=== PATIENT | male | born 1950 | race Caucasian/White ===

== ENCOUNTER 2016-08-11 22:11 | Emergency (ER) | payer BC ==
[~2016-08-11] VITALS: Ht 170.2 cm; Wt 78.1 kg
[~2016-08-11 22:11] MED LIST: LISI20TA3 PO; PRLSR20 PO; PROP40TA5 PO; TIZA4CAP PO; TRAM-10 PO
[2016-08-11 22:15] VITALS: Ht 170.2 cm; Wt 78.1 kg
[2016-08-11 22:57] LABS: BASO % 0.1 %; BASO ABS # 0.01 K/uL (0-0.2); COMPLETE YES; EOS % 0.7 %; HEMATOCRIT 44.3 % (42-52); IG% 0.2 %; LYMPH % 4.3 %; LYMPH ABS # 0.53 K/uL (1.2-3.4); MEAN CELL VOLUME 85.5 fL (80-100); MEAN CORPUSCULAR HEMOGLOBIN 31.1 pg (25-34); MEAN CORPUSCULAR HGB CONC 36.3 g/dl (32-36); MEAN PLATELET VOLUME 10.8 fL (7.4-10.4); MONO % 3.2 %; NEUT % 91.5 %; PLATELET COUNT 165 K/uL (130-400); RED BLOOD COUNT 5.18 M/uL (4.7-6.1); WHITE BLOOD COUNT 12.37 K/uL (4.8-10.8)
[2016-08-11] MEDS ORDERED: IBUPROFEN 600 MG TAB PO STA (23:11)
[2016-08-11] MEDS ORDERED: SODIUM CHLORIDE 0.9% 1000ML 1,000 ML IV SCH (23:15)
[2016-08-11 23:36] LABS: BLOOD UREA NITROGEN 21 mg/dl (7-18); BUN/CREATININE RATIO 19.1 (10-20); CALCIUM 9.4 mg/dl (8.5-10.1); CARBON DIOXIDE 20 mmol/L (21-32); CHLORIDE 104 mmol/L (98-107); GLUCOSE 162 mg/dl (70-99); POTASSIUM 3.6 mmol/L (3.5-5.1); SODIUM 137 mmol/L (136-145)
[2016-08-11 23:41] LABS: ALKALINE PHOSPHATASE 80 U/L (45-117); ALT/SGPT 23 U/L (12-78); AST/SGOT 16 U/L (15-37)
--- NOTE | 2016-08-12 00:37 | EMERGENCY ROOM VISIT NOTE ---
History First contact with patient: 22:33 Chief Complaint: RESPIRATORY PROBLEMS Stated Complaint: COLD BRONCHITIS, BREATHING ISSUES, FEVER Nursing Triage Summary: Pt reports cough and cold symptoms for 3 days. Lives with daughter and two grandchildren. All have had cold. Pt concerned about pneumonia. History of Present Illness The patient is a 66 year old male who presents to the Emergency Room with complaints of coughing and fever. Patient has had coughing x 3 days, productive of yellow sputum, without blood. Patient has been taking NyQuil and Pseudafed, which helps to dry up cough but makes him feel sedated. He has also used a steamer and hot drinks. Also took Percocet (leftover from previous surgery, which relieves pain from neck jolt from coughing, which is extremely painful due to cervical stenosis). Cough associated with fever, which started a few days ago, worse today and associated with chills and clamminess. Temperature measured 100.4 at home Cough also associated with chest pain, felt bilaterally in front and back pain, worse when coughing. Patient unsure of radiation, particularly given roasterman shoulder pain bilaterally. He is also experiencing dyspnea at rest, but denies nausea. He has a loss of appetite, but is tolerating food without vomiting or abdominal pain. No constipation or diarrhea. No UTI symptoms. No other URI symptoms (sore throat , rhinorrhea, eustachian dysfunction) Sick contacts: two grandchildren currently sick No history of asthma Ex smoker of 50 years, only social smoker during college No alcohol usage x 15 years, pancreatitis resolved. Cardiac hx: tachycardia of unknown cause Fam hx: dad - stroke and [place], brother - DM Review of Systems See HPI for pertinent positives and negatives. A total of ten systems were reviewed and were otherwise negative. Past Medical/Surgical History Medical Problems: (1) Cervical stenosis of spine (2) Gastro-Esophageal Reflux Disease Without Esophagitis (3) Hyperlipidemia (4) Hypertension (5) Shoulder pain Surgical Problems: (1) History of arthroscopy of shoulder (2) Total knee replacement status Social History Smoking Status: Former Smoker Marital Status: single Housing Status: lives with family Occupation Status: retired Current/Historical Medications Scheduled Lisinopril (Prinivil), 20 MG PO BID Propranolol Hcl (Propranolol Hcl), 40 MG PO BID Tizanidine (Zanaflex), 4 MG PO HS Scheduled PRN Omeprazole (Prilosec), 20 MG PO DAILY PRN for Heartburn Allergies Coded Allergies: Morphine (Verified Allergy, Severe, THROAT CLOSES, 05/02/16) Physical Exam Vital Signs Date Time Temp Pulse Resp B/P Pulse Ox O2 Delivery O2 Flow Rate FiO2 08/12/16 00:51 36.9 92 20 118/72 98 08/11/16 23:25 95 20 122/78 98 Room Air 08/11/16 22:25 98 Room Air 08/11/16 22:15 38.1 98 20 164/90 94 Room Air Physical Exam GENERAL: alert, lying in bed, no acute distress, non-toxic HEAD: Normocephalic, atraumatic. No sinus tenderness. EYES: PERRL, EOMI, normal conjunctiva EARS: Tympanic membranes within normal limits, no indication of effusion. OROPHARYNX: no exudate, no erythema, lips, buccal mucosa, and tongue normal and mucous membranes are dry NECK: supple, no nuchal rigidity, no adenopathy, non-tender LUNGS: Diffuse crepitations on auscultation. Normal chest wall mechanics, good air entry. No crackles, or wheezes HEART: no murmurs, S1 normal and S2 normal CHEST: Reproducible tenderness on costochondral joints ABDOMEN: abdomen soft, non-tender, normo-active bowel sounds, no masses, no rebound or guarding. BACK: Back is symmetrical on inspection, no deformities, no midline tenderness, no CVA tenderness. SKIN: Warm, pink, dry. No erythema, rashes, or bruising. EXTREMITIES: Grossly normal. Moving all 4 limbs, strength 5/5. No pitting edema. Calves non tender. NEURO: Alert, Ox3. No focal deficits. Normal sensorium, cranial nerves II-XII grossly intact, normal speech. PSYCH: Mood and affect appropriate. Medical Decision & Procedures Laboratory Results 08/11/16 22:30 Red Blood Count 5.18, Mean Corpuscular Volume 85.5, Mean Corpuscular Hemoglobin 31.1, Mean Corpuscular Hemoglobin Concent 36.3, Mean Platelet Volume 10.8, Neutrophils (%) (Auto) 91.5, Lymphocytes (%) (Auto) 4.3, Monocytes (%) (Auto) 3.2, Eosinophils (%) (Auto) 0.7, Basophils (%) (Auto) 0.1, Neutrophils # (Auto) 11.32, Lymphocytes # (Auto) 0.53, Monocytes # (Auto) 0.39, Eosinophils # (Auto) 0.09, Basophils # (Auto) 0.01 08/11/16 22:30 Test 08/11/16 00:45 08/11/16 22:30 08/11/16 22:43 Influenza Type A Antigen Neg for Influ A (NEG) Influenza Type B Antigen Neg for Influ B (NEG) White Blood Count 12.37 K/uL (4.8-10.8) Red Blood Count 5.18 M/uL (4.7-6.1) Hemoglobin 16.1 g/dL (14.0-18.0) Hematocrit 44.3 % (42-52) Mean Corpuscular Volume 85.5 fL (80-100) Mean Corpuscular Hemoglobin 31.1 pg (25-34) Mean Corpuscular Hemoglobin Concent 36.3 g/dl (32-36) Platelet Count 165 K/uL (130-400) Mean Platelet Volume 10.8 fL (7.4-10.4) Neutrophils (%) (Auto) 91.5 % Lymphocytes (%) (Auto) 4.3 % Monocytes (%) (Auto) 3.2 % Eosinophils (%) (Auto) 0.7 % Basophils (%) (Auto) 0.1 % Neutrophils # (Auto) 11.32 K/uL (1.4-6.5) Lymphocytes # (Auto) 0.53 K/uL (1.2-3.4) Monocytes # (Auto) 0.39 K/uL (0.11-0.59) Eosinophils # (Auto) 0.09 K/uL (0-0.5) Basophils # (Auto) 0.01 K/uL (0-0.2) RDW Standard Deviation 43.4 fL (36.4-46.3) RDW Coefficient of Variation 13.9 % (11.5-14.5) Immature Granulocyte % (Auto) 0.2 % Immature Granulocyte # (Auto) 0.03 K/uL (0.00-0.02) Anion Gap 13.0 mmol/L (3-11) Est Creatinine Clear Calc Drug Dose 61.8 ml/min Estimated GFR () 80.6 Estimated GFR (Non- 69.6 BUN/Creatinine Ratio 19.1 (10-20) Calcium Level 9.4 mg/dl (8.5-10.1) Total Bilirubin 0.6 mg/dl (0.2-1) Direct Bilirubin 0.1 mg/dl (0-0.2) Aspartate Amino Transf (AST/SGOT) 16 U/L (15-37) Alanine Aminotransferase (ALT/SGPT) 23 U/L (12-78) Alkaline Phosphatase 80 U/L (45-117) Troponin I < 0.015 ng/ml (0-0.045) Total Protein 7.4 gm/dl (6.4-8.2) Albumin 4.3 gm/dl (3.4-5.0) Bedside Lactic Acid Venous 1.08 mmol/L (0.90-1.70) Medications Administered Medications (Trade) Dose Ordered Sig/Maribell Route Start Time Stop Time Status Last Admin Dose Admin Sodium Chloride (Nss 1000ml) 1,000 ml @ 500 mls/hr Q2H IV 08/11/16 23:15 08/12/16 01:46 DC 08/11/16 23:22 500 MLS/HR Ibuprofen (Motrin Tab) 600 mg NOW STAT PO 08/11/16 23:11 08/11/16 23:13 DC 08/11/16 23:21 600 MG ECG Indication: chest pain Rate (beats per minute): 89 Rhythm: normal sinus Findings: no acute ischemic change, no ectopy Comparison ECG Date: no prior available Medical Decision 66 year old male presented with cough and fever The patient was evaluated in room []. A complete history and physical exam was performed. Differential diagnoses includes but is not limited to pneumonia, bronchitis, COPD/Asthma exacerbation, pneumothorax, pulmonary embolism, congestive heart failure, acute coronary syndrome Patient was given PO Motrin 600mg for fever relief. Additionally, 1L of IV normal saline was given to improve hydration status. EKG showed NSR without acute ischemic changes. Lab work was performed. CBC, BMP, LFT, and lipase were all within normal limits. CXR was read by attending, and no consolidation or fluid was noted Nasopharyngeal swabs performed, but patient agreeable to be discharged prior to results since he is already outside the window for efficacy of Tamiflu Likely diagnosis is upper respiratory viral infection. As such, patient advised for conservative management with Tylenol or Motrin for pain and fever relief and increased oral intake to improve hydration status. In addition, patient advise for early PCP follow up, especially if no improvement in symptoms, or uncontrolled fever. Patient and daughter understand and agreeable with care plan. Patient discharged home well. Impression Primary Impression: URI (upper respiratory infection) Departure Information Dispostion Home / Self-Care Condition GOOD Referrals Imer Maynard MD (PCP) Patient Instructions My [facility] Additional Instructions You were seen in the ER with a history of productive cough associated with chest pain and fever for three days. Labs were done that showed mildly elevated white blood cells, no anemia and normal functioning kidneys and liver. Your EKG and cardiac enzyme were within normal limits. You chest X-ray showed no consolidation or pleural fluid. Swabs were taken for influenza, those results are pending. You will be called if they test positive. As such, conservative managment is recommended. For pain and fever control, you can use the following [id number] medicines: - Regular strength (325mg/tab) Tylenol (acetaminophen) 2 tabs every 4-6 hours as needed. Do not exceed 12 tablets in a 24 hour period. Avoid taking more than 4 grams (4000 mg) of Tylenol per day. This includes any other sources of acetaminophen you may take on a regular basis. - Regular strength (200 mg/tab) Advil (ibuprofen) 1-2 tabs every 4-6 hours as needed. Do not exceed a dose of 3200 mg per day. In addition, adequte hydration is very important. Please ensure increased intake of fluids for hydration maintenance. Other techniques to help you feel better include warm compresses on your chest, and a humidifier if that continues to feel helpful. Finally, please follow up with your PCP next week. If you feel worse, or feel no improvement, a sooner appointment is advisable or you may need to return to the ED. You have been examined and treated today on an emergency basis only. This is not a substitute for, or an effort to provide, complete comprehensive medical care. It is impossible to recognize and treat all injuries or illnesses in a single emergency department visit. It is therefore important that you make a follow up with your physician for close monitoring. Return to the ER immediately for worsening or persistent dizziness, vomiting, headache, uncontrolled fevers, increasing chest pains associated with nausea or sweating, difficulty breathing, black or bloody stools, slurred speech, numbness , weakness, visual changes, worsening of your condition, or as needed. Problem Qualifiers Primary Impression: URI (upper respiratory infection) URI type: unspecified viral URI Qualified Codes: J06.9 - Acute upper respiratory infection, unspecified; B97.89 - Other viral agents as the cause of diseases classified elsewhere
[2016-08-12 00:51] VITALS: BP 118/72; PULSE 92; TEMP 36.9; O2SAT 98
--- NOTE | 2016-08-12 01:37 | EMERGENCY ROOM VISIT NOTE ---
History Report prepared by Adam: Addie Nielson Under the Supervision of: Christina CalhounO. First contact with patient: 22:33 Chief Complaint: RESPIRATORY PROBLEMS Stated Complaint: COLD BRONCHITIS, BREATHING ISSUES, FEVER Nursing Triage Summary: Pt reports cough and cold symptoms for 3 days. Lives with daughter and two grandchildren. All have had cold. Pt concerned about pneumonia. History of Present Illness The patient is a 66 year old male who presents to the Emergency Room with complaints of worsening respiratory problems for the past 3 days. His symptoms started with rhinorrhea, sneezing, coughing, and congestion. He states that these symptoms have worsened and now he is having a hard time breathing. This afternoon he developed chills and a fever. His temperature was 100.4. He took NyQuil for his symptoms. The patient notes chest tightness. He has pain when he coughs and takes a deep breath and states "My lungs hurt today." He rates his pain as a 7/10. He has a history of spinal stenosis and states that coughing exacerbates his neck pain. His children and grandchildren have been sick with similar symptoms. He denies any personal history of asthma or COPD. Pt denies headache, abdominal pain, nausea, vomiting, diarrhea, pain with urination, and melena. He took Percocet LOFTSMAN/WOMAN which helped with his pain. Source of History: patient, family (daughter) Onset: 3 days ago Position: chest (respiratory) Symptom Intensity: 7/10 Quality: other (tightness) Timing: worsening Modifying Factors (Worsening): breathing, other (coughing) Modifying Factors (Relieving): narcotics (Percocet) Associated Symptoms: + SOB, + chest pain, + chills, + fevers, + neck pain, No abdominal pain, No diarrhea, No headache, No melena, No nausea, No urinary symptoms, No vomiting Review of Systems See HPI for pertinent positives & negatives. A total of 10 systems reviewed and were otherwise negative. Past Medical & Surgical Medical Problems: (1) Cervical stenosis of spine (2) Gastro-Esophageal Reflux Disease Without Esophagitis (3) Hyperlipidemia (4) Hypertension (5) Shoulder pain Surgical Problems: (1) History of arthroscopy of shoulder (2) Total knee replacement status Family History Diabetes mellitus FH: heart disease Hypertension Kidney disease Kidney stones Social History Smoking Status: Former Smoker Smokeless Tobacco Use: No Alcohol Use: none Marital Status: single Housing Status: lives with family Occupation Status: retired Current/Historical Medications Scheduled Lisinopril (Prinivil), 20 MG PO BID Propranolol Hcl (Propranolol Hcl), 40 MG PO BID Tizanidine (Zanaflex), 4 MG PO HS Scheduled PRN Omeprazole (Prilosec), 20 MG PO DAILY PRN for Heartburn Allergies Coded Allergies: Morphine (Verified Allergy, Severe, THROAT CLOSES, 05/02/16) Physical Exam Vital Signs Date Time Temp Pulse Resp B/P Pulse Ox O2 Delivery O2 Flow Rate FiO2 08/12/16 00:51 36.9 92 20 118/72 98 08/11/16 23:25 95 20 122/78 98 Room Air 08/11/16 22:25 98 Room Air 08/11/16 22:15 38.1 98 20 164/90 94 Room Air Physical Exam GENERAL: alert, sitting up in bed, well appearing, well nourished, no distress, non-toxic EYE EXAM: normal conjunctiva OROPHARYNX: no exudate, no erythema, lips, buccal mucosa, and tongue normal and mucous membranes are moist NECK: supple, no nuchal rigidity, no adenopathy, non-tender LUNGS: Diffuse wheezing. Normal chest wall mechanics HEART: no murmurs, S1 normal and S2 normal ABDOMEN: abdomen soft, non-tender, normo-active bowel sounds, no masses, no rebound or guarding. BACK: Back is symmetrical on inspection and there is no deformity, no midline tenderness, no CVA tenderness. SKIN: no rashes and no bruising UPPER EXTREMITIES: upper extremities are grossly normal. LOWER EXTREMITIES: No pitting edema. Calves equal bilaterally. NEURO EXAM: Normal sensorium, cranial nerves II-XII grossly intact, normal speech, no gross weakness of arms, no gross weakness of legs. Medical Decision & Procedures ER Provider Diagnostic Interpretation: Two-view chest x-ray as interpreted by myself reveals no focal infiltrate or pneumothorax. Laboratory Results 08/11/16 22:30 Red Blood Count 5.18, Mean Corpuscular Volume 85.5, Mean Corpuscular Hemoglobin 31.1, Mean Corpuscular Hemoglobin Concent 36.3, Mean Platelet Volume 10.8, Neutrophils (%) (Auto) 91.5, Lymphocytes (%) (Auto) 4.3, Monocytes (%) (Auto) 3.2, Eosinophils (%) (Auto) 0.7, Basophils (%) (Auto) 0.1, Neutrophils # (Auto) 11.32, Lymphocytes # (Auto) 0.53, Monocytes # (Auto) 0.39, Eosinophils # (Auto) 0.09, Basophils # (Auto) 0.01 08/11/16 22:30 Test 08/11/16 00:45 08/11/16 22:30 08/11/16 22:43 White Blood Count 12.37 K/uL (4.8-10.8) Red Blood Count 5.18 M/uL (4.7-6.1) Hemoglobin 16.1 g/dL (14.0-18.0) Hematocrit 44.3 % (42-52) Mean Corpuscular Volume 85.5 fL (80-100) Mean Corpuscular Hemoglobin 31.1 pg (25-34) Mean Corpuscular Hemoglobin Concent 36.3 g/dl (32-36) Platelet Count 165 K/uL (130-400) Mean Platelet Volume 10.8 fL (7.4-10.4) Neutrophils (%) (Auto) 91.5 % Lymphocytes (%) (Auto) 4.3 % Monocytes (%) (Auto) 3.2 % Eosinophils (%) (Auto) 0.7 % Basophils (%) (Auto) 0.1 % Neutrophils # (Auto) 11.32 K/uL (1.4-6.5) Lymphocytes # (Auto) 0.53 K/uL (1.2-3.4) Monocytes # (Auto) 0.39 K/uL (0.11-0.59) Eosinophils # (Auto) 0.09 K/uL (0-0.5) Basophils # (Auto) 0.01 K/uL (0-0.2) RDW Standard Deviation 43.4 fL (36.4-46.3) RDW Coefficient of Variation 13.9 % (11.5-14.5) Immature Granulocyte % (Auto) 0.2 % Immature Granulocyte # (Auto) 0.03 K/uL (0.00-0.02) Anion Gap 13.0 mmol/L (3-11) Est Creatinine Clear Calc Drug Dose 61.8 ml/min Estimated GFR () 80.6 Estimated GFR (Non- 69.6 BUN/Creatinine Ratio 19.1 (10-20) Calcium Level 9.4 mg/dl (8.5-10.1) Total Bilirubin 0.6 mg/dl (0.2-1) Direct Bilirubin 0.1 mg/dl (0-0.2) Aspartate Amino Transf (AST/SGOT) 16 U/L (15-37) Alanine Aminotransferase (ALT/SGPT) 23 U/L (12-78) Alkaline Phosphatase 80 U/L (45-117) Troponin I < 0.015 ng/ml (0-0.045) Total Protein 7.4 gm/dl (6.4-8.2) Albumin 4.3 gm/dl (3.4-5.0) Bedside Lactic Acid Venous 1.08 mmol/L (0.90-1.70) Laboratory results per my review. Medications Administered Medications (Trade) Dose Ordered Sig/Maribell Route Start Time Stop Time Status Last Admin Dose Admin Sodium Chloride (Nss 1000ml) 1,000 ml @ 500 mls/hr Q2H IV 08/11/16 23:15 09/10/16 23:14 08/11/16 23:22 500 MLS/HR Ibuprofen (Motrin Tab) 600 mg NOW STAT PO 08/11/16 23:11 08/11/16 23:13 DC 08/11/16 23:21 600 MG ECG Indication: chest pain Rate (beats per minute): 89 Rhythm: normal sinus Findings: no acute ischemic change, no ectopy, other (normal axis) ED Course ED COURSE: Vital signs were reviewed and showed febrile. The patients medical record was reviewed The above diagnostic studies were performed and reviewed. ED treatments and interventions as stated above. 2233: The patient was evaluated in room B9. A complete history and physical examination was performed. 2311: Motrin 600 mg PO 2315: NSS 1000 ml @ 500 mls/hr IV 2359: Upon reevaluation, the patient is feeling better and resting comfortably. I discussed my findings with the patient and he understands and agrees with the treatment plan. Based on the patients age, coexisting illnesses, exam and lab findings the decision to treat as an outpatient was made. The patient remained stable while under my care. The patient appeared well at the time of discharge. Medical Decision Differential diagnoses includes but is not limited to pneumonia, bronchitis, COPD/Asthma exacerbation, pneumothorax, pulmonary embolism, congestive heart failure, acute coronary syndrome. Patient is a 66-year-old male who presents the ER for cough associated with a fever and runny nose. He notes multiple family sick contacts. Labs show no significant leukocytosis or anemia. BMP shows a CO2 of 20. LFTs along with bilirubin and troponin were negative. EKG was nondiagnostic. Based on symptoms I do favor this likely a viral URI. Chest x-ray shows no focal infiltrate. Flu swabs were obtained just prior to discharge. Patient was initially seen by my resident and I independently evaluated patient. Patient was discharged follow-up with his primary care doctor as an outpatient. Vitals are stable. Discussed with Pt concerning signs and symptoms to watch out for. Pt was instructed to follow up with their PCP and discussed with the patient their option to return to the ED at anytime for persistent or worsening symptoms. The appropriate anticipatory guidance and out-patient management, including indications for return to the emergency department, were explained at length to the patient and understood. Impression Primary Impression: URI (upper respiratory infection) Scribe Attestation The scribe's documentation has been prepared under my direction and personally reviewed by me in its entirety. I confirm that the note above accurately reflects all work, treatment, procedures, and medical decision making performed by me. Departure Information Dispostion Home / Self-Care Referrals Imer Maynard MD (PCP) Forms HOME CARE DOCUMENTATION FORM, IMPORTANT VISIT INFORMATION, WORK / SCHOOL INSTRUCTIONS Patient Instructions My [facility] Additional Instructions You were seen in the ER with a history of productive cough associated with chest pain and fever for three days. Labs were done that showed mildly elevated white blood cells, no anemia and normal functioning kidneys and liver. Your EKG and cardiac enzyme were within normal limits. You chest X-ray showed no consolidation or pleural fluid. Swabs were taken for influenza, those results are pending. You will be called if they test positive. As such, conservative managment is recommended. For pain and fever control, you can use the following [id number] medicines: - Regular strength (325mg/tab) Tylenol (acetaminophen) 2 tabs every 4-6 hours as needed. Do not exceed 12 tablets in a 24 hour period. Avoid taking more than 4 grams (4000 mg) of Tylenol per day. This includes any other sources of acetaminophen you may take on a regular basis. - Regular strength (200 mg/tab) Advil (ibuprofen) 1-2 tabs every 4-6 hours as needed. Do not exceed a dose of 3200 mg per day. In addition, adequte hydration is very important. Please ensure increased intake of fluids for hydration maintenance. Other techniques to help you feel better include warm compresses on your chest, and a humidifier if that continues to feel helpful. Finally, please follow up with your PCP next week. If you feel worse, or feel no improvement, a sooner appointment is advisable or you may need to return to the ED. You have been examined and treated today on an emergency basis only. This is not a substitute for, or an effort to provide, complete comprehensive medical care. It is impossible to recognize and treat all injuries or illnesses in a single emergency department visit. It is therefore important that you make a follow up with your physician for close monitoring. Return to the ER immediately for worsening or persistent dizziness, vomiting, headache, uncontrolled fevers, increasing chest pains associated with nausea or sweating, difficulty breathing, black or bloody stools, slurred speech, numbness , weakness, visual changes, worsening of your condition, or as needed. Problem Qualifiers Primary Impression: URI (upper respiratory infection) URI type: unspecified viral URI Qualified Codes: J06.9 - Acute upper respiratory infection, unspecified; B97.89 - Other viral agents as the cause of diseases classified elsewhere
--- NOTE | 2016-08-12 07:16 | DIAGNOSTIC IMAGING REPORT ---
CHEST 2 VIEWS ROUTINE CLINICAL HISTORY: Cough. Fever. COMPARISON STUDY: No previous studies for comparison. FINDINGS: Lung volumes are normal. No pneumothorax or pleural effusion is present. On lateral projection, there is a 3.5 cm density which projects over the mid to lower thoracic spine. This is not confirmed on frontal projection.. Pulmonary vascularity is normal. Cardiomediastinal silhouette is normal. There are postsurgical findings of the left shoulder. Arthritis of the left humeral joint is noted. IMPRESSION: Equivocal nodular airspace opacity projecting over the lower thoracic spine shown only on lateral projection. This may reflect minimal airspace disease, artifact or a nodule. Short-term follow-up PA and lateral chest radiograph is recommended. Electronically signed by: Doe Duncan M.D. 08/12/2016 7:14 AM Dictated Date/Time: 08/12/2016 7:10 AM
== END 2016-08-12 00:52 | disposition home or self-care (01) ==
LOC: C.EDB 22:12
DX: J06.9 Acute upper respiratory infection, unspecified (principal); I10 Essential (primary) hypertension; E78.5 Hyperlipidemia, unspecified; K21.9 Gastro-esophageal reflux disease without esophagitis; Z96.659 Presence of unspecified artificial knee joint; Z98.890 Other specified postprocedural states; Z87.891 Personal history of nicotine dependence; Z79.899 Other long term (current) drug therapy; Z88.5 Allergy status to narcotic agent; Z83.3 Family history of diabetes mellitus; Z82.49 Family history of ischemic heart disease and other diseases of the circulatory system; Z84.1 Family history of disorders of kidney and ureter

== ENCOUNTER 2016-08-26 16:32 | Inpatient (IN) | payer BC, OTHER ==
[~2016-08-26] VITALS: Ht 171.4 cm; Wt 79.5 kg
[~2016-08-26 16:32] MED LIST changes: -TRAM-10 PO
[2016-08-26] MEDS ORDERED: ACETAMINOPHEN 325 MG TAB PO PRN (17:00)
[2016-08-26] MEDS ORDERED: ONDANSETRON INJ 2 MG/ML 2 ML VIAL IV PRN (17:00)
[2016-08-26 17:04] VITALS: BP 177/94; PULSE 117; TEMP 36.6; O2SAT 97
[2016-08-26] MEDS ORDERED: PIPERACILL/TAZOBAC CONSULT ACTIVE PRN (17:15)
[2016-08-26] MEDS ORDERED: PIPERACILL/TAZOBAC IV 3.375 GM in DEXTROSE 5% 100ML 100 ML IV ONE (17:30)
[2016-08-26] MEDS ORDERED: OPTIRAY 320 IV PRN (17:30)
[2016-08-26 17:39] LABS: BASO % 0.5 %; BASO ABS # 0.04 K/uL (0-0.2); EOS % 1.7 %; HEMATOCRIT 47.3 % (42-52); IG% 0.4 %; LYMPH % 21.9 %; LYMPH ABS # 1.85 K/uL (1.2-3.4); MEAN CELL VOLUME 86.6 fL (80-100); MEAN PLATELET VOLUME 10.2 fL (7.4-10.4); MONO % 9.1 %; NEUT % 66.4 %; PLATELET COUNT 259 K/uL (130-400); RED BLOOD COUNT 5.46 M/uL (4.7-6.1); WHITE BLOOD COUNT 8.44 K/uL (4.8-10.8)
[2016-08-26 17:41] LABS: COMPLETE YES; MEAN CORPUSCULAR HGB CONC 34.7 g/dl (32-36)
[2016-08-26 17:44] LABS: PROTHROMBIN TIME (PATIENT) 10.9 SECONDS (9.0-12.0)
[2016-08-26 17:58] VITALS: BP 177/94; PULSE 117; TEMP 36.6; O2SAT 97; Ht 171.4 cm; Wt 79.5 kg
[2016-08-26 18:00] LABS: ALB/GLOB RATIO 1.4 (0.9-2); ALKALINE PHOSPHATASE 70 U/L (45-117); ALT/SGPT 44 U/L (12-78); AST/SGOT 22 U/L (15-37); BLOOD UREA NITROGEN 12 mg/dl (7-18); BUN/CREATININE RATIO 12.6 (10-20); CALCIUM 10.1 mg/dl (8.5-10.1); CARBON DIOXIDE 25 mmol/L (21-32); CHLORIDE 106 mmol/L (98-107); CREATININE 0.96 mg/dl (0.60-1.40); GLUCOSE 111 mg/dl (70-99); POTASSIUM 3.4 mmol/L (3.5-5.1); SODIUM 140 mmol/L (136-145)
[2016-08-26] MEDS: SODIUM CHLORIDE 0.9% 1000ML 1,000 ML IV SCH (18:01)
[2016-08-26] MEDS ORDERED: HYDROmorphone INJ 1 MG/ML SYR IV STA (18:16)
--- NOTE | 2016-08-26 19:08 | DIAGNOSTIC IMAGING REPORT ---
CHEST 2 VIEWS ROUTINE HISTORY: Follow-up Pneumonia COMPARISON: Chest 08/11/2016. FINDINGS: No focal lung consolidations to suggest pneumonia. No evidence for pulmonary edema. The heart is normal in size. No pleural effusion. No pneumothorax. The lung bases appear essentially clear. Small linear density at the lingula favor subsegmental atelectasis. Metallic anchors within the left glenoid. IMPRESSION: No focal lung consolidations to suggest pneumonia. Electronically signed by: Michael Ho M.D. 08/26/2016 7:07 PM Dictated Date/Time: 08/26/2016 7:05 PM
[2016-08-26] MEDS: POTASSIUM CHLR 10 MEQ / WTR 10 MEQ in PREMIXED WATER 100 ML IV SCH ×2 (19:28→21:19)
[2016-08-26] MEDS: ENOXAPARIN 40 MG/0.4 ML SYR SQ SCH (19:28)
--- NOTE | 2016-08-26 19:47 | History and Physical ---
History & Physical Date & Time of Service: Aug 26, 2016 at 19:31 Chief Complaint: Pneumonia; Diverticulitis Primary Care Physician: Imer Maynard MD History of Present Illness Source: patient, hospital records 66 yo male with recent history of descending colon diverticulitis on CT scan . The patient initially had URI symptoms around 08/12 and was seen in the ED, no PNA seen, was given Tetracycline to cover for possible bacterial infection. He then developed lower abdominal pain, diarrhea, some bloody stools and returned for the CT on 08/15. At that time he had a leukocytosis. CT also showed some ground glass opacities in right lower lobe consistent with pneumonia. He was given Cipro and Flagyl. His diarrhea got worse for two days and he stopped the Cipro on his own because he was concerned it was making the diarrhea worse. He did continue to take Flagyl TID. He was getting better over the past week but then the past two days he has felt worse. His lower abdominal pain is worse, he is moving bowels 5 times a day, small volume and there is pain associated with the BM. He has decreased appetite today, had some eggs for breakfast but little else, mild nausea but no vomiting. He has felt chills and sweats. He continues to have a cough, harsh, no sputum production and the cough is bothersome because it exacerbated his cervical spinal stenosis. He saw his PCP who directly admitted him for concerns of worsening diverticulitis. Past Medical/Surgical History H/o sigmoid diverticulitis with urgent sigmoidectomy, 20 years ago h/o alcohol abuse, sober 20 years Medical Problems: (1) Cervical stenosis of spine Status: Chronic (2) Gastro-Esophageal Reflux Disease Without Esophagitis Status: Chronic (3) Hyperlipidemia Status: Chronic (4) Hypertension Status: Chronic (5) Shoulder pain Status: Chronic Surgical Problems: (1) History of arthroscopy of shoulder Status: Resolved (2) Total knee replacement status Status: Resolved Family History Diabetes mellitus FH: heart disease Hypertension Kidney disease Kidney stones Social History Smoking Status: Never Smoker Alcohol Use: h/o abuse, quit 20 years ago Marital Status: single Housing status: lives with family Occupational Status: retired Allergies Coded Allergies: Morphine (Verified Allergy, Severe, THROAT CLOSES, 05/02/16) Home Medications Scheduled Lisinopril (Prinivil), 20 MG PO BID Omeprazole (Prilosec), 40 MG PO DAILY Propranolol Hcl (Propranolol Hcl), 40 MG PO BID Tizanidine (Zanaflex), 4 MG PO HS Review of Systems Constitutional: + chills, + fatigue, + sweats, + weakness, No fever, No weight loss Eyes: No diplopia, No discharge, No eye pain, No problem reported, No redness, No worsening of vision ENT: No dental problems, No hearing loss, No nasal symptoms, No problem reported, No sore throat, No tinnitus, No trouble swallowing, No unusual epistaxis Respiratory: + cough, No dyspnea at rest, No dyspnea on exertion, No shortness of breath, No sputum, No wheezing Cardiovascular: No PND, No chest pain, No claudication, No edema, No orthopnea , No palpitations, No problem reported Abdomen: + diarrhea, + nausea, + pain (lower right quadrant), No GI bleeding, No constipation, No vomiting Musculoskeletal: + joint pain (cervical spine), No calf pain, No muscle pain, No problem reported, No swelling Genitourinary - Male: No dysuria, No hematuria, No urinary frequency, No urinary urgency Neurologic: No balance problems, No memory loss, No numbness/tingling, No paralysis, No problem reported, No vertigo, No weakness Psychiatric: No anhedonism, No anxiety, No depression symptoms, No insomnia, No problem reported, No substance abuse Endocrine: No excessive thirst, No excessive urination, No fatigue, No problem reported Hematologic / Lymphatic: No abnormal bleeding/bruising, No clotting problems, No night sweats, No problem reported, No swollen lymph nodes Integumentary: No bleeding, No color change, No itch, No new/changing skin lesions, No problem reported, No rash Allergic / Immunologic: No environmental allergies, No food allergies, No frequent infections, No hives, No pet sensitivities, No poor healing, No problem reported, No prolonged convalescence, No seasonal allergies Physical Exam Vital Signs Date Time Temp Pulse Resp B/P Pulse Ox O2 Delivery O2 Flow Rate FiO2 08/26/16 17:58 36.6 117 18 177/94 97 Room Air 08/26/16 17:04 36.6 117 18 177/94 97 Room Air General Appearance: WD/WN, no apparent distress Head: normocephalic, atraumatic Eyes: normal inspection, EOMI, sclerae normal ENT: normal ENT inspection, hearing grossly normal, pharynx normal Neck: supple, no adenopathy, no JVD, trachea midline Respiratory/Chest: chest non-tender, lungs clear, normal breath sounds, no respiratory distress, no accessory muscle use Cardiovascular: regular rate, rhythm, no edema, no gallop, no JVD, no murmur, normal peripheral pulses Abdomen/GI: normal bowel sounds, soft, no organomegaly, + tenderness (RLQ, no rebound, no rigidity, the tenderness is to deep palpation) Back: normal inspection, no CVA tenderness, no muscle spasm, normal range of motion Extremities/Musculoskelatal: normal inspection, no calf tenderness, normal capillary refill, no pedal edema, normal range of motion Neurologic/Psych: outcomes manager II-XII nml as tested, no motor/sensory deficits, alert, normal mood/affect, normal reflexes, oriented x 3 Skin: normal color, warm/dry, no rash Diagnostics Laboratory Results Results Past 24 Hours Test 08/26/16 17:19 Range/Units White Blood Count 8.44 4.8-10.8 K/uL Red Blood Count 5.46 4.7-6.1 M/uL Hemoglobin 16.4 14.0-18.0 g/dL Hematocrit 47.3 42-52 % Mean Corpuscular Volume 86.6 80-100 fL Mean Corpuscular Hemoglobin 30.0 25-34 pg Mean Corpuscular Hemoglobin Concent 34.7 32-36 g/dl Platelet Count 259 130-400 K/uL Mean Platelet Volume 10.2 7.4-10.4 fL Neutrophils (%) (Auto) 66.4 % Lymphocytes (%) (Auto) 21.9 % Monocytes (%) (Auto) 9.1 % Eosinophils (%) (Auto) 1.7 % Basophils (%) (Auto) 0.5 % Neutrophils # (Auto) 5.61 1.4-6.5 K/uL Lymphocytes # (Auto) 1.85 1.2-3.4 K/uL Monocytes # (Auto) 0.77 0.11-0.59 K/uL Eosinophils # (Auto) 0.14 0-0.5 K/uL Basophils # (Auto) 0.04 0-0.2 K/uL RDW Standard Deviation 46.8 36.4-46.3 fL RDW Coefficient of Variation 14.8 11.5-14.5 % Immature Granulocyte % (Auto) 0.4 % Immature Granulocyte # (Auto) 0.03 0.00-0.02 K/uL Prothrombin Time 10.9 9.0-12.0 SECONDS Prothromb Time International Ratio 1.0 0.9-1.1 Activated Partial Thromboplast Time 25.9 21.0-31.0 SECONDS Partial Thromboplastin Ratio 1.0 Sodium Level 140 136-145 mmol/L Potassium Level 3.4 3.5-5.1 mmol/L Chloride Level 106 98-107 mmol/L Carbon Dioxide Level 25 21-32 mmol/L Anion Gap 9.0 3-11 mmol/L Blood Urea Nitrogen 12 7-18 mg/dl Creatinine 0.96 0.60-1.40 mg/dl Estimated GFR () 95.1 Estimated GFR (Non- 82.0 BUN/Creatinine Ratio 12.6 10-20 Random Glucose 111 70-99 mg/dl Lactic Acid Level 1.8 0.4-2.0 mmol/L Calcium Level 10.1 8.5-10.1 mg/dl Total Bilirubin 0.3 0.2-1 mg/dl Aspartate Amino Transf (AST/SGOT) 22 15-37 U/L Alanine Aminotransferase (ALT/SGPT) 44 12-78 U/L Alkaline Phosphatase 70 45-117 U/L Total Protein 7.5 6.4-8.2 gm/dl Albumin 4.4 3.4-5.0 gm/dl Globulin 3.1 2.5-4.0 gm/dl Albumin/Globulin Ratio 1.4 0.9-2 CXR normal (PA and lateral, no infiltrate) Impression Assessment and Plan 66 yo male with worsening lower abdominal pain, loose stools, weakness, chills, concerns for worsening diverticulitis - Descending colon diverticulitis: treated with Flagyl PO x 11 days, stopped Cipro 9 days ago due to diarrhea afebrile, vitals stable, normal WBC, abdomen tender to deep palpation but no signs of acute abdomen, lactic acid normal initiate Zosyn IV for optimal imaging, have ordered a CT abdomen/pelvis with PO and IV contrast for tomorrow AM if diverticulitis appears worse or if there is abscess, would consult general surgery NPO except medications, IV fluids, Dilaudid 0.5mg IV PRN for pain - Recent pneumonia: no evidence of infiltrate on CXR, still with harsh cough treat with nebulizers, on Zosyn for abdomen - Hypokalemia: KCl 20mEq IV now - HTN: continue lisinopril and propranolol - DVT prophylaxis: Lovenox Level of Care Med/Surg Advanced Directives Existing Advance Directive: Yes Existing Living Will: Yes Existing Power of Customer Support Coordinator: Yes Resuscitation Status FULL RESUSCITATION VTE Prophylaxis VTE Risk Assessment Done? Y/N: Yes Risk Level: Moderate Given or contraindicated: Enoxaparin (Lovenox)SQ Additional Copies To Imer Maynard MD
[2016-08-26 21:00] VITALS: BP 150/86; PULSE 96
--- NOTE | 2016-08-26 21:08 | DIAGNOSTIC IMAGING REPORT ---
ABDOMEN AND PELVIS CT WITH IV AND ORAL CONTRAST CT DOSE: 805.03 mGy.cm HISTORY: Follow-up diverticulitis. Left lower quadrant abdominal pain. TECHNIQUE: Multiaxial CT images of the abdomen and pelvis were performed following the use of intravenous and oral contrast. COMPARISON STUDY: Abdomen and pelvis CT 08/05/2016. FINDINGS: Significant improvement in the thickening and pericolonic fat stranding involving the distal descending colon and proximal sigmoid colon. This is consistent with near complete resolution of the suspected colitis/diverticulitis. No perforation or abscess identified. There are multiple colonic diverticula. The appendix is not identified and may be surgically absent. Punctate stone within the lower pole of the right kidney. No hydronephrosis. Multiple hypodense lesions within the left kidney. The dominant lesion within the upper pole measures 1.9 cm and is consistent with a cyst. The additional lesions are subcentimeter in size with the largest measuring 9 mm. Therefore, these are too small to characterize. A small diverticulum at the gastric fundus. Patchy groundglass airspace opacity seen within the lung bases has also significantly improved. The liver, gallbladder, pancreas, spleen, and adrenal glands are unremarkable. No retroperitoneal lymphadenopathy. The bladder is unremarkable. Tiny fat-containing bilateral inguinal hernias. IMPRESSION: 1. Near complete resolution of the bowel wall thickening involving the descending colon and proximal sigmoid colon. This is consistent with a resolving colitis/diverticulitis. 3. Right-sided nephrolithiasis. No hydronephrosis. 4. Patchy groundglass airspace opacity within the lung bases have also significantly improved.. Electronically signed by: Michael Ho M.D. 08/26/2016 9:06 PM Dictated Date/Time: 08/26/2016 8:59 PM
[2016-08-26] MEDS: LISINOPRIL 20 MG TAB PO SCH (21:20)
[2016-08-26] MEDS: PROPRANOLOL HCL 20 MG TAB PO SCH (21:21)
[2016-08-26] MEDS: PIPERACILL/TAZOBAC IV 3.375 GM in DEXTROSE 5% 100ML IV SCH (23:28)
[2016-08-26 23:34] VITALS: BP 132/86; PULSE 76; TEMP 36.6; O2SAT 96
[2016-08-27] VITALS (7 sets, daily range): BP systolic 116–171; BP diastolic 74–98; PULSE 72–87; TEMP 36.6; O2SAT 92–98
[2016-08-27] MEDS: HYDROmorphone INJ 1 MG/ML SYR IV PRN ×4 (01:14→19:37)
[2016-08-27] MEDS: SODIUM CHLORIDE 0.9% 1000ML 1,000 ML IV SCH ×4 (01:15→23:37)
[2016-08-27] MEDS ORDERED: COUGH DROP (SUGAR FREE) LOZ 24 LOZ/1 BOX ONE (03:17)
[2016-08-27] MEDS ORDERED: NURSING DECISION MEDICATION ORDER SCH (03:30)
[2016-08-27] MEDS ORDERED: COUGH DROP (SUGAR FREE) LOZ 24 LOZ/1 BOX PO PRN (03:30)
[2016-08-27] MEDS: PIPERACILL/TAZOBAC IV 3.375 GM in DEXTROSE 5% 100ML IV SCH ×3 (09:11→23:33)
[2016-08-27] MEDS: LISINOPRIL 20 MG TAB PO SCH ×2 (09:12→20:33)
[2016-08-27] MEDS: PANTOprazole SOD 40 MG TAB PO SCH (09:12)
[2016-08-27] MEDS: PROPRANOLOL HCL 20 MG TAB PO SCH ×2 (09:12→20:33)
[2016-08-27] MEDS ORDERED: METHYLPREDNISOLONE IV 125 MG in SYRINGE 0 ML IV ONE (15:00)
[2016-08-27] MEDS: ALBUT/IPRATROP 3MG/0.5MG NEB 3 ML VIAL INH SCH ×2 (16:00→19:28)
[2016-08-27] MEDS: ENOXAPARIN 40 MG/0.4 ML SYR SQ SCH (17:36)
--- NOTE | 2016-08-27 17:54 | Hospitalist Progress Note ---
Hospitalist Progress Note Date of Service Aug 27, 2016. Subjective Pt evaluation today including: conversation w/ patient, physical exam, chart review, lab review, review of studies, review of inpatient medication list Patient has pleuritic chest pain when coughing. lower abdomen is feeling better. He had also noticed wheezing at times Additional Comments: A 10 system review was performed and all were negative. Positives were placed in the subjective section. Objective Vital Signs Date Time Temp Pulse Resp B/P Pulse Ox O2 Delivery O2 Flow Rate FiO2 08/27/16 15:12 36.6 72 18 150/91 97 Room Air 08/27/16 10:51 130/74 08/27/16 08:22 98 Room Air 08/27/16 08:00 36.6 87 18 171/98 98 Room Air 08/27/16 08:00 98 Room Air 08/27/16 00:00 Room Air 08/26/16 23:34 36.6 76 18 132/86 96 Room Air 08/26/16 21:00 96 150/86 08/26/16 17:58 36.6 117 18 177/94 97 Room Air Physical Exam Notes: GEN: Awake, alert, and oriented x 3. Not in acute distress HEENT: Tm's intact, no inflammation, EOMI, PERRLA, MMM Neck: Soft, supple Lungs: + expiratory wheezes Heart: REG, nrl S1S2 without murmurs, rubs or gallops Abdomen: Soft, NT, ND, + BS EXT: No C/C/E NEURO: CN's II-XII grossly intact, non-focal Skin: warm, dry, no rashes PSYCH: pleasant, cooperative, no signs of significant anxiety or depression. Assessment and Plan 1) pleurisy/post-infectious bronchospasm - add Solumedrol 2) Recent pneumonia - resolved 3) Diverticulitis - mild improvement continue antibiotics. ok to advance diet. 4) HTN - home meds. Lovenox for DVT prophylaxis Continued [facility] stay due to: multiple IV medications needed Discharge planning: home
[2016-08-27] MEDS: METHYLPREDNISOLONE IV 40 MG in SYRINGE 0 ML IV SCH (21:46)
[2016-08-28] VITALS (9 sets, daily range): BP systolic 141–156; BP diastolic 76–91; PULSE 77–84; TEMP 36.7–36.8; O2SAT 94–97
[2016-08-28] MEDS: HYDROmorphone INJ 1 MG/ML SYR IV PRN ×5 (04:06→21:34)
[2016-08-28] MEDS: METHYLPREDNISOLONE IV 40 MG in SYRINGE 0 ML IV SCH ×3 (05:22→21:34)
[2016-08-28 06:20] LABS: BASO % 0.1 %; BASO ABS # 0.01 K/uL (0-0.2); COMPLETE YES; HEMATOCRIT 42.4 % (42-52); IG% 0.1 %; LYMPH % 10.5 %; LYMPH ABS # 0.78 K/uL (1.2-3.4); MEAN CELL VOLUME 86.5 fL (80-100); MEAN CORPUSCULAR HEMOGLOBIN 29.8 pg (25-34); MEAN CORPUSCULAR HGB CONC 34.4 g/dl (32-36); MEAN PLATELET VOLUME 10.1 fL (7.4-10.4); MONO % 2.4 %; NEUT % 86.9 %; PLATELET COUNT 252 K/uL (130-400); WHITE BLOOD COUNT 7.41 K/uL (4.8-10.8)
[2016-08-28 06:55] LABS: BUN/CREATININE RATIO 13.6 (10-20); CALCIUM 8.3 mg/dl (8.5-10.1); CREATININE 0.9 mg/dl (0.60-1.40); POTASSIUM 3.9 mmol/L (3.5-5.1)
[2016-08-28] MEDS: ALBUT/IPRATROP 3MG/0.5MG NEB 3 ML VIAL INH SCH ×4 (07:25→20:25)
[2016-08-28] MEDS: PANTOprazole SOD 40 MG TAB PO SCH (08:01)
[2016-08-28] MEDS: PROPRANOLOL HCL 20 MG TAB PO SCH ×2 (08:01→21:35)
[2016-08-28] MEDS: PIPERACILL/TAZOBAC IV 3.375 GM in DEXTROSE 5% 100ML IV SCH ×3 (08:01→23:49)
[2016-08-28] MEDS: LISINOPRIL 20 MG TAB PO SCH ×2 (08:01→21:34)
[2016-08-28] MEDS: SODIUM CHLORIDE 0.9% 1000ML 1,000 ML IV SCH ×2 (08:01→17:31)
[2016-08-28] MEDS: ENOXAPARIN 40 MG/0.4 ML SYR SQ SCH (17:32)
--- NOTE | 2016-08-28 18:39 | Hospitalist Progress Note ---
Hospitalist Progress Note Date of Service Aug 28, 2016. Subjective Pt evaluation today including: conversation w/ patient, physical exam, chart review, lab review, review of studies, review of inpatient medication list Patient is having less cough today and has had much less pleuritic pain. He feels he is coming along nicely and is thinking that he could go home tomorrow. His abdomen is feeling much better. Additional Comments: A 10 system review was performed and all were negative. Positives were placed in the subjective section. Objective Vital Signs Date Time Temp Pulse Resp B/P Pulse Ox O2 Delivery O2 Flow Rate FiO2 08/28/16 15:34 82 14 94 Room Air 08/28/16 15:20 36.7 82 16 141/76 96 Room Air 08/28/16 11:21 77 14 95 Room Air 08/28/16 08:00 94 Room Air 08/28/16 07:45 36.7 77 18 155/89 94 Room Air 08/28/16 07:25 77 14 95 Room Air 08/28/16 00:00 Room Air 08/27/16 22:57 36.6 80 18 116/76 92 Room Air 08/27/16 20:53 80 152/83 08/27/16 20:00 Room Air 08/27/16 19:33 79 14 96 Room Air Physical Exam Notes: GEN: Awake, alert, and oriented x 3. Not in acute distress HEENT: Tm's intact, no inflammation, EOMI, PERRLA, MMM Neck: Soft, supple Lungs: + rhonchi, but much less overall. b/l with expiratory wheezes. Heart: REG, nrl S1S2 without murmurs, rubs or gallops Abdomen: Soft, NT, ND, + BS EXT: No C/C/E NEURO: CN's II-XII grossly intact, non-focal Skin: warm, dry, no rashes PSYCH: pleasant, cooperative, no signs of significant anxiety or depression. Laboratory Results Last 24 Hours Test 08/28/16 06:07 White Blood Count 7.41 K/uL Red Blood Count 4.90 M/uL Hemoglobin 14.6 g/dL Hematocrit 42.4 % Mean Corpuscular Volume 86.5 fL Mean Corpuscular Hemoglobin 29.8 pg Mean Corpuscular Hemoglobin Concent 34.4 g/dl Platelet Count 252 K/uL Mean Platelet Volume 10.1 fL Neutrophils (%) (Auto) 86.9 % Lymphocytes (%) (Auto) 10.5 % Monocytes (%) (Auto) 2.4 % Eosinophils (%) (Auto) 0.0 % Basophils (%) (Auto) 0.1 % Neutrophils # (Auto) 6.43 K/uL Lymphocytes # (Auto) 0.78 K/uL Monocytes # (Auto) 0.18 K/uL Eosinophils # (Auto) 0.00 K/uL Basophils # (Auto) 0.01 K/uL RDW Standard Deviation 45.8 fL RDW Coefficient of Variation 14.4 % Immature Granulocyte % (Auto) 0.1 % Immature Granulocyte # (Auto) 0.01 K/uL Sodium Level 141 mmol/L Potassium Level 3.9 mmol/L Chloride Level 109 mmol/L Carbon Dioxide Level 22 mmol/L Anion Gap 10.0 mmol/L Blood Urea Nitrogen 12 mg/dl Creatinine 0.90 mg/dl Est Creatinine Clear Calc Drug Dose 76.8 ml/min Estimated GFR () 102.8 Estimated GFR (Non- 88.7 BUN/Creatinine Ratio 13.6 Random Glucose 155 mg/dl Calcium Level 8.3 mg/dl Assessment and Plan 1) pleurisy/post-infectious bronchospasm - Solumedrol seemed to work very well. Patient improved 65%. 2) Recent pneumonia - resolved 3) Diverticulitis - mild improvement continue antibiotics. ok to advance diet. Plan to switch to orals tomorrow and D/C in the afternoon. 4) HTN - home meds. Lovenox for DVT prophylaxis
[2016-08-29] MEDS ORDERED: BENZONATATE 100MG CAP PO PRN (00:15)
[2016-08-29] MEDS: SODIUM CHLORIDE 0.9% 1000ML 1,000 ML IV SCH ×2 (00:20→08:32)
[2016-08-29] MEDS: HYDROmorphone INJ 1 MG/ML SYR IV PRN ×3 (02:25→10:53)
[2016-08-29] MEDS: METHYLPREDNISOLONE IV 40 MG in SYRINGE 0 ML IV SCH (06:18)
[2016-08-29 06:39] LABS: MEAN CELL VOLUME 87.7 fL (80-100); MEAN CORPUSCULAR HEMOGLOBIN 29.8 pg (25-34); MEAN PLATELET VOLUME 10.5 fL (7.4-10.4); PLATELET COUNT 236 K/uL (130-400); RED BLOOD COUNT 4.56 M/uL (4.7-6.1); WHITE BLOOD COUNT 9.07 K/uL (4.8-10.8)
[2016-08-29 06:56] VITALS: BP 150/81; PULSE 69; TEMP 37; O2SAT 97
[2016-08-29 07:11] LABS: CREATININE 0.94 mg/dl (0.60-1.40)
[2016-08-29] MEDS: ALBUT/IPRATROP 3MG/0.5MG NEB 3 ML VIAL INH SCH ×2 (07:49→11:45)
[2016-08-29 08:00] VITALS: O2SAT 97
[2016-08-29 08:04] VITALS: PULSE 71; O2SAT 96
[2016-08-29] MEDS: PIPERACILL/TAZOBAC IV 3.375 GM in DEXTROSE 5% 100ML IV SCH (08:33)
[2016-08-29] MEDS: PROPRANOLOL HCL 20 MG TAB PO SCH (08:37)
[2016-08-29] MEDS: LISINOPRIL 20 MG TAB PO SCH (08:37)
[2016-08-29] MEDS: PANTOprazole SOD 40 MG TAB PO SCH (08:38)
[2016-08-29] MEDS ORDERED: MOXI400T2 PO (09:21)
[2016-08-29] MEDS ORDERED: ULT50X PO (09:21)
[2016-08-29] MEDS ORDERED: METH4PAK PO (09:21)
[2016-08-29] MEDS ORDERED: CTP1 PO (09:21)
--- NOTE | 2016-08-29 09:29 | Discharge Instructions ---
Discharge Instructions Admission Reason for Admission: Pneumonia; Diverticulitis Discharge Discharge Diagnosis / Problem: Diverticulitis, Pleurisy Discharge Goals Goal(s): Decrease discomfort, Improve disease control Activity Recommendations Activity Limitations: resume your previous activity . Instructions / Follow-Up Instructions / Follow-Up PCP in 5-7 days. You were given an antibiotic called Avelox (moxifloxacin) at discharge. This will work for both diverticulitis and pneumonia. Finish the 7 day course. You blood pressure was elevated to 150's systolic on most readings in the hospital. For this reason I am giving you Clonidine 0.1mg to use twice daily. You had mentioned in the past that this product worked well for you without side effect. You will still continue your other usual blood pressure meds. Current Hospital Diet Patient's current hospital diet: Regular Diet Discharge Diet Recommended Diet: Regular Diet Procedures Procedures Performed: NONE Pending Studies Studies pending at discharge: no Laboratory Results Last 24 Hours Test 08/29/16 06:00 White Blood Count 9.07 K/uL Red Blood Count 4.56 M/uL Hemoglobin 13.6 g/dL Hematocrit 40.0 % Mean Corpuscular Volume 87.7 fL Mean Corpuscular Hemoglobin 29.8 pg Mean Corpuscular Hemoglobin Concent 34.0 g/dl RDW Standard Deviation 47.0 fL RDW Coefficient of Variation 14.6 % Platelet Count 236 K/uL Mean Platelet Volume 10.5 fL Creatinine 0.94 mg/dl Est Creatinine Clear Calc Drug Dose 73.6 ml/min Estimated GFR () 97.5 Estimated GFR (Non- 84.2 Medical Emergencies . Who to Call and When: Medical Emergencies: If at any time you feel your situation is an emergency, please call 911 immediately. . Non-Emergent Contact Non-Emergency issues call your: Primary Care Provider . . "Provider Documentation" section prepared by Oscar Minor. VTE Core Measure Inpt VTE Proph given/why not?: Enoxaparin (Lovenox)SQ
--- NOTE | 2016-08-29 09:52 | Discharge Summary ---
Discharge Summary Admission Date: Aug 26, 2016 at 16:32 Discharge Date: Aug 29, 2016 Discharge Disposition: Home Principal Diagnosis: Diverticulitis, pleurisy Problems/Secondary Diagnoses: (1) Cervical stenosis of spine Status: Chronic (2) Gastro-Esophageal Reflux Disease Without Esophagitis Status: Chronic (3) Hyperlipidemia Status: Chronic (4) Hypertension Status: Chronic (5) Shoulder pain Status: Chronic Procedures: NONE. Consultations: NONE. Medication Reconciliation New Medications: Clonidine HCl (Clonidine HCl) 0.1 Mg Tab 0.1 MG PO BID for 30 Days, #60 0 Refills NS Methylprednisolone (Medrol Dosepak) 4 Mg Marty 1 PKT PO UD for 6 Days, #1 PKT NS Moxifloxacin Hcl (Avelox) 400 Mg Tab 1 TAB PO DAILY for 7 Days, #7 TAB NS Tramadol HCl (Tramadol HCl) 50 Mg Tab 50 MG PO Q6 for Pain, #40 0 Refills NS Continued Medications: Lisinopril (Prinivil) 20 Mg Tab 20 MG PO BID, TAB Omeprazole (Prilosec) 20 Mg Capcr 40 MG PO DAILY, CAP Propranolol Hcl (Propranolol Hcl) 40 Mg Tab 40 MG PO BID Tizanidine (Zanaflex) 4 Mg Cap 4 MG PO HS, CAP for neck pain Discharge Exam A 10 system review was performed and all were negative. Positives were placed in the subjective section. GEN: Awake, alert, and oriented x 3. Not in acute distress HEENT: Tm's intact, no inflammation, EOMI, PERRLA, MMM Neck: Soft, supple Lungs: CTA b/l, No r/r/w. Heart: REG, nrl S1S2 without murmurs, rubs or gallops Abdomen: Soft, NT, ND, + BS EXT: No C/C/E NEURO: CN's II-XII grossly intact, non-focal Skin: warm, dry, no rashes PSYCH: pleasant, cooperative, no signs of significant anxiety or depression. Hospital Course Patient was admitted with lower abdominal pain in the face of a resolving pneumonia. The patient had been taking Cipro and Flagyl without much clinical improvement. He was also having pleuritic chest pain worse with cough and deep breath. The patient was placed on IV Zosyn. CXR was showing a resolving pneumonia, he did not have even one temperature spike during hospital stay and his WBC count remained normal therefore I did not feel that the patient had a pneumonia. Rather, I felt he had a pleurisy and post-infectious bronchitis. I treated him with IV Solu medrol and Duonebs he responded well with reduction in cough frequency and resolution of pleuritic chest pain. By the day of discharge the patient was tolerating a full diet with minimal lower abdominal pain around meals. I did add clonidine for blood pressure control near discharge as his systolic continuously was elevated into the 150's. Lovenox for DVT prophylaxis Total Time Spent: Greater than 30 minutes This includes examination of the patient, discharge planning, medication reconciliation, and communication with other providers. Discharge Instructions Please refer to the electronic Patient Visit Report (Discharge Instructions) for additional information. Follow-Up PCP in 5-7 days.
[2016-08-29 11:19] VITALS: BP 150/81; PULSE 71; TEMP 37; O2SAT 96
== END 2016-08-29 12:10 | disposition home or self-care (01) | DRG 194 ==
LOC: UNDOADMIN 16:32 → C.MS2W 16:32
PROVIDERS: ADMIT Internal Medicine; ATTEND Internal Medicine
DX: R09.1 Pleurisy (principal); K57.32 Diverticulitis of large intestine without perforation or abscess without bleeding; J40 Bronchitis, not specified as acute or chronic; J98.01 Acute bronchospasm; M48.02 Spinal stenosis, cervical region; E87.6 Hypokalemia; I10 Essential (primary) hypertension; K21.9 Gastro-esophageal reflux disease without esophagitis; E78.5 Hyperlipidemia, unspecified; Z87.01 Personal history of pneumonia (recurrent); Z79.899 Other long term (current) drug therapy

== ENCOUNTER 2016-09-04 16:03 | Emergency (ER) | payer BC, OTHER ==
[~2016-09-04] VITALS: Ht 175.3 cm; Wt 79.9 kg
[~2016-09-04 16:03] MED LIST changes: +CTP1 PO; +METH4PAK PO; +MOXI400T2 PO; +ULT50X PO
[2016-09-04 16:39] VITALS: TEMP 36.9; Ht 175.3 cm; Wt 79.9 kg
[2016-09-04] MEDS ORDERED: SODIUM CHLORIDE 0.9% 1000ML 1,000 ML IV STA (17:05)
[2016-09-04] MEDS ORDERED: HYDROmorphone INJ 1 MG/ML SYR IV STA (17:05)
[2016-09-04] MEDS ORDERED: ONDANSETRON INJ 2 MG/ML 2 ML VIAL IV STA (17:05)
[2016-09-04] MEDS ORDERED: SODIUM CHLORIDE 0.9% 500ML 500 ML IV STA (17:05)
[2016-09-04 17:18] LABS: BASO % 0.1 %; BASO ABS # 0.01 K/uL (0-0.2); COMPLETE YES; EOS % 0.5 %; HEMATOCRIT 45.7 % (42-52); IG% 0.8 %; LYMPH % 10.6 %; LYMPH ABS # 0.93 K/uL (1.2-3.4); MEAN CELL VOLUME 88.1 fL (80-100); MEAN CORPUSCULAR HEMOGLOBIN 30.1 pg (25-34); MEAN CORPUSCULAR HGB CONC 34.1 g/dl (32-36); MEAN PLATELET VOLUME 10.7 fL (7.4-10.4); MONO % 9.4 %; NEUT % 78.6 %; PLATELET COUNT 234 K/uL (130-400); RED BLOOD COUNT 5.19 M/uL (4.7-6.1); WHITE BLOOD COUNT 8.77 K/uL (4.8-10.8)
--- NOTE | 2016-09-04 17:26 | EMERGENCY ROOM VISIT NOTE ---
History Report prepared by Adam: Javi Guthrie Under the Supervision of: Dr. Kaylie Paiz M.D. First contact with patient: 16:58 Chief Complaint: ABDOMINAL PAIN Stated Complaint: DIVERTICULITIS SYMPTOMS Nursing Triage Summary: pt admitted to hospital last week for pneumonia and diverticulitis pt reports pneumonia is better but abd pain and diarrhea is worse History of Present Illness The patient is a 66 year old male who presents to the Emergency Room with complaints of worsening abdominal pain beginning two days prior to arrival. He currently rates his discomfort as a 6/10 in severity. The patient associates diarrhea, abdominal cramping, and chills with today's symptoms. He states he was in the hospital for three days last week for diverticulitis and pneumonia. The patient notes he only took two days worth of his four day course of antibiotics, because they made him nauseous and experience diarrhea. He states the pneumonia has gotten better, but the diarrhea has worsened. He notes he began eating again two days ago and experienced the abdominal cramping. The patient notes he was discharged on two antibiotics and prednisone. He denies a fever and blood in his stool. Source of History: patient Onset: two days EVENT PLANNER Position: abdomen Symptom Intensity: 6/10 Quality: cramping Timing: worsening Associated Symptoms: + abdominal pain, + chills, + diarrhea, No fevers, No hematochezia, No melena Review of Systems See HPI for pertinent positives & negatives. A total of 10 systems reviewed and were otherwise negative. Past Medical & Surgical Medical Problems: (1) Cervical stenosis of spine (2) Community acquired pneumonia (3) Diverticulitis (4) Gastro-Esophageal Reflux Disease Without Esophagitis (5) Hyperlipidemia (6) Hypertension (7) Shoulder pain Surgical Problems: (1) History of arthroscopy of shoulder (2) Total knee replacement status Family History Diabetes mellitus FH: heart disease Hypertension Kidney disease Kidney stones Social History Smoking Status: Current Some Day Smoker Alcohol Use: none Marital Status: single Housing Status: lives with family Occupation Status: retired Current/Historical Medications Scheduled Amoxicillin & Pot Clavulanate (Augmentin 875-125 mg), 875 MG PO BID Clonidine HCl (Clonidine HCl), 0.1 MG PO BID Lisinopril (Prinivil), 20 MG PO BID Omeprazole (Prilosec), 40 MG PO BID Propranolol Hcl (Propranolol Hcl), 40 MG PO BID Tizanidine (Zanaflex), 4 MG PO HS Tramadol HCl (Tramadol HCl), 50 MG PO Q6 Allergies Coded Allergies: Morphine (Verified Allergy, Severe, THROAT CLOSES, 09/04/16) Physical Exam Vital Signs Date Time Temp Pulse Resp B/P Pulse Ox O2 Delivery O2 Flow Rate FiO2 09/04/16 21:02 57 136/86 95 09/04/16 19:40 56 167/96 97 09/04/16 17:48 61 162/87 96 Room Air 09/04/16 16:39 36.9 69 20 155/81 96 Room Air Physical Exam Vital signs reviewed. General: Well-appearing 66-year-old male, in no significant distress. HEENT: No scleral icterus, PERRLA, neck supple. Atraumatic. Cardiovascular: Regular rate and rhythm, no extra sounds. Pulmonary: Clear to auscultation bilaterally, normal work of breathing. Abdomen: Mild left lower quadrant tenderness with some guarding. Soft, nondistended, positive bowel sounds. Musculoskeletal: Atraumatic, no peripheral edema. Neurologic: Patient awake alert and oriented x 3, full strength in all 4 extremities. Cranial nerves 2 through 12 grossly intact. Skin: Warm, dry, no rash Medical Decision & Procedures ER Provider Diagnostic Interpretation: CT results as stated below per my review and radiologist interpretation: ABDOMEN AND PELVIS CT WITH IV AND ORAL CONTRAST CT DOSE: 515.18 mGy.cm HISTORY: Left lower quadrant abdominal pain. TECHNIQUE: Multiaxial CT images of the abdomen and pelvis were performed following the use of intravenous and oral contrast. COMPARISON STUDY: Abdomen and pelvis CT 08/26/2016. FINDINGS: Nodular groundglass densities within the base of the left lower lobe have almost completely resolved. This continues to improve. No pneumoperitoneum. No pneumatosis. No fractures within the visualized osseous structures. Small fat-containing left inguinal hernia. Normal bladder. No pelvic free fluid. Moderate well-formed stool seen throughout the colon and rectum. Multiple colonic diverticula. Mild thickening of the descending colon and proximal sigmoid colon is not significantly changed. No new areas of bowel wall thickening. No evidence for bowel obstruction. The liver, gallbladder, spleen, adrenal glands, and pancreas are unremarkable. No retroperitoneal lymphadenopathy. A punctate stone within the lower pole of the right kidney. Stable hypodense left renal lesions consistent with cysts. No hydronephrosis. IMPRESSION: 1. No significant change in the mild bowel wall thickening involving the descending colon and proximal sigmoid colon. This favors an area of mild residual colitis/diverticulitis. No perforation or abscess. Recommend follow-up nonemergent colonoscopy to exclude the less likely possible of an underlying lesion. 2. Right-sided nephrolithiasis. No hydronephrosis. 3. Near complete resolution of the left lower lobe groundglass airspace opacities. Electronically signed by: Michael Ho M.D. 09/04/2016 8:09 PM Laboratory Results 09/04/16 17:00 Red Blood Count 5.19, Mean Corpuscular Volume 88.1, Mean Corpuscular Hemoglobin 30.1, Mean Corpuscular Hemoglobin Concent 34.1, Mean Platelet Volume 10.7, Neutrophils (%) (Auto) 78.6, Lymphocytes (%) (Auto) 10.6, Monocytes (%) (Auto) 9.4, Eosinophils (%) (Auto) 0.5, Basophils (%) (Auto) 0.1, Neutrophils # (Auto) 6.90, Lymphocytes # (Auto) 0.93, Monocytes # (Auto) 0.82, Eosinophils # (Auto) 0.04, Basophils # (Auto) 0.01 09/04/16 17:00 Test 09/04/16 17:00 09/04/16 19:40 White Blood Count 8.77 K/uL (4.8-10.8) Red Blood Count 5.19 M/uL (4.7-6.1) Hemoglobin 15.6 g/dL (14.0-18.0) Hematocrit 45.7 % (42-52) Mean Corpuscular Volume 88.1 fL (80-100) Mean Corpuscular Hemoglobin 30.1 pg (25-34) Mean Corpuscular Hemoglobin Concent 34.1 g/dl (32-36) Platelet Count 234 K/uL (130-400) Mean Platelet Volume 10.7 fL (7.4-10.4) Neutrophils (%) (Auto) 78.6 % Lymphocytes (%) (Auto) 10.6 % Monocytes (%) (Auto) 9.4 % Eosinophils (%) (Auto) 0.5 % Basophils (%) (Auto) 0.1 % Neutrophils # (Auto) 6.90 K/uL (1.4-6.5) Lymphocytes # (Auto) 0.93 K/uL (1.2-3.4) Monocytes # (Auto) 0.82 K/uL (0.11-0.59) Eosinophils # (Auto) 0.04 K/uL (0-0.5) Basophils # (Auto) 0.01 K/uL (0-0.2) RDW Standard Deviation 46.6 fL (36.4-46.3) RDW Coefficient of Variation 14.4 % (11.5-14.5) Immature Granulocyte % (Auto) 0.8 % Immature Granulocyte # (Auto) 0.07 K/uL (0.00-0.02) Anion Gap 10.0 mmol/L (3-11) Est Creatinine Clear Calc Drug Dose 66.1 ml/min Estimated GFR () 80.6 Estimated GFR (Non- 69.6 BUN/Creatinine Ratio 14.2 (10-20) Calcium Level 9.1 mg/dl (8.5-10.1) Total Bilirubin 0.2 mg/dl (0.2-1) Direct Bilirubin < 0.1 mg/dl (0-0.2) Aspartate Amino Transf (AST/SGOT) 12 U/L (15-37) Alanine Aminotransferase (ALT/SGPT) 34 U/L (12-78) Alkaline Phosphatase 101 U/L (45-117) Total Protein 6.7 gm/dl (6.4-8.2) Albumin 3.7 gm/dl (3.4-5.0) Lipase 195 U/L (73-393) Urine Color YELLOW Urine Appearance CLEAR (CLEAR) Urine pH 6.0 (4.5-7.5) Urine Specific [place] 1.007 (1.000-1.030) Urine Protein NEG (NEG) Urine Glucose (UA) NEG (NEG) Urine Ketones NEG (NEG) Urine Occult Blood NEG (NEG) Urine Nitrite NEG (NEG) Urine Bilirubin NEG (NEG) Urine Urobilinogen NEG (NEG) Urine Leukocyte Esterase NEG (NEG) Laboratory results per my review. Medications Administered Medications (Trade) Dose Ordered Sig/Maribell Route Start Time Stop Time Status Last Admin Dose Admin Sodium Chloride 500 ml @ 999 mls/hr Q31M STAT IV 09/04/16 17:05 09/04/16 17:35 DC 09/04/16 17:05 999 MLS/HR Sodium Chloride (Nss 1000ml) 1,000 ml @ 125 mls/hr Q8H STAT IV 09/04/16 17:05 09/04/16 21:51 DC 09/04/16 17:24 125 MLS/HR Ondansetron HCl (Zofran Inj) 4 mg NOW STAT IV 09/04/16 17:05 09/04/16 17:07 DC 09/04/16 17:23 4 MG Hydromorphone HCl (Dilaudid Inj) 1 mg NOW STAT IV 09/04/16 17:05 09/04/16 17:07 DC 09/04/16 17:23 1 MG ED Course 1701: Past medical records reviewed. The patient was evaluated in room A11B. A complete history and physical examination was performed. 1704: Ordered Dilaudid Inj 1 mg IV, Zofran Inj 4 mg IV, Sodium Chloride 1,000 ml @ 125 mls/hr IV, Sodium Chloride 500 ml @ 999 mls/hr IV. 2020: Upon reevaluation, the patient appeared to have improvement of his symptoms. I discussed findings with him. He verbalized agreement of the treatment plan. The patient was discharged home. Medical Decision Etiologies such as intraabdominal abscess, perforation, appendicitis, diverticulitis, PUD, biliary pathology, UTI, pancreatitis, obstruction, mesenteric ischemia, aortic pathology, infections, inflammatory bowel disease, renal colic, as well as others were entertained. This patient was evaluated and appeared to be in no significant distress. IV access was obtained and laboratory work was drawn. Patient was placed on the faculty research physician and found to be in a normal sinus rhythm. Laboratory work reveals a normal white blood cell count. CT scan reveals mild bowel wall thickening involving the descending colon and proximal sigmoid colon. Patient was informed of the findings. He was not able to tolerate Cipro and Flagyl due to nausea and diarrhea therefore the patient will be placed on Augmentin. He was given a dose of IV Dilaudid and Zofran in the ER with some relief. Patient will follow-up with his physician and gastroenterology for reevaluation and colonoscopy as needed. He will return to the ER for worsening of symptoms or any medical concerns. Impression Primary Impression: Diverticulitis Scribe Attestation The scribe's documentation has been prepared under my direction and personally reviewed by me in its entirety. I confirm that the note above accurately reflects all work, treatment, procedures, and medical decision making performed by me. Departure Information Dispostion Home / Self-Care Prescriptions Amoxicillin & Pot Clavulanate (Augmentin 875-125 mg) 1 Tab Tab 875 MG PO BID for 7 Days, TAB Prov: Kaylie Paiz M.D. 09/04/16 Referrals Imer Maynard MD (PCP) Forms HOME CARE DOCUMENTATION FORM, IMPORTANT VISIT INFORMATION Patient Instructions My [facility] Additional Instructions Diagnosis: Diverticulitis Augmentin 875 mg twice daily for 7 days. Drink plenty of clear fluids. Follow-up with your physician this week for reevaluation. Consider gastroenterology follow-up. Return to the ER for worsening of symptoms or any medical concerns. Problem Qualifiers Primary Impression: Diverticulitis Diverticulitis site: large intestine Diverticulitis bleeding: without bleeding Diverticulitis complication: without perforation or abscess Qualified Codes: K57.32 - Diverticulitis of large intestine without perforation or abscess without bleeding
[2016-09-04 17:28] LABS: ALT/SGPT 34 U/L (12-78); AST/SGOT 12 U/L (15-37); BLOOD UREA NITROGEN 16 mg/dl (7-18); BUN/CREATININE RATIO 14.2 (10-20); CALCIUM 9.1 mg/dl (8.5-10.1); CARBON DIOXIDE 26 mmol/L (21-32); CHLORIDE 106 mmol/L (98-107); GLUCOSE 155 mg/dl (70-99); POTASSIUM 4.3 mmol/L (3.5-5.1); SODIUM 142 mmol/L (136-145)
[2016-09-04 17:31] LABS: ALKALINE PHOSPHATASE 101 U/L (45-117)
[2016-09-04] MEDS ORDERED: OPTIRAY 320 IV PRN (19:00)
[2016-09-04 20:05] LABS: URINE APPEARANCE CLEAR (CLEAR); URINE BILIRUBIN NEG (NEG); URINE COLOR YELLOW; URINE NITRITE NEG (NEG); URINE SPECIFIC GRAVITY 1.007 (1.000-1.030); UROBILINOGEN NEG (NEG); ZZUR CULT IF INDIC CLEAN CATCH NO
--- NOTE | 2016-09-04 20:10 | DIAGNOSTIC IMAGING REPORT ---
ABDOMEN AND PELVIS CT WITH IV AND ORAL CONTRAST CT DOSE: 515.18 mGy.cm HISTORY: Left lower quadrant abdominal pain. TECHNIQUE: Multiaxial CT images of the abdomen and pelvis were performed following the use of intravenous and oral contrast. COMPARISON STUDY: Abdomen and pelvis CT 08/26/2016. FINDINGS: Nodular groundglass densities within the base of the left lower lobe have almost completely resolved. This continues to improve. No pneumoperitoneum. No pneumatosis. No fractures within the visualized osseous structures. Small fat-containing left inguinal hernia. Normal bladder. No pelvic free fluid. Moderate well-formed stool seen throughout the colon and rectum. Multiple colonic diverticula. Mild thickening of the descending colon and proximal sigmoid colon is not significantly changed. No new areas of bowel wall thickening. No evidence for bowel obstruction. The liver, gallbladder, spleen, adrenal glands, and pancreas are unremarkable. No retroperitoneal lymphadenopathy. A punctate stone within the lower pole of the right kidney. Stable hypodense left renal lesions consistent with cysts. No hydronephrosis. IMPRESSION: 1. No significant change in the mild bowel wall thickening involving the descending colon and proximal sigmoid colon. This favors an area of mild residual colitis/diverticulitis. No perforation or abscess. Recommend follow-up nonemergent colonoscopy to exclude the less likely possible of an underlying lesion. 2. Right-sided nephrolithiasis. No hydronephrosis. 3. Near complete resolution of the left lower lobe groundglass airspace opacities. Electronically signed by: Michael Ho M.D. 09/04/2016 8:09 PM Dictated Date/Time: 09/04/2016 8:02 PM
[2016-09-04 20:13] LABS: MANUAL MICROSCOPIC REQUIRED? NO; REVIEW REQ? NO
[2016-09-04] MEDS ORDERED: AMOX875T PO (20:35)
[2016-09-04 21:02] VITALS: BP 136/86; PULSE 57; O2SAT 95
== END 2016-09-04 21:04 | disposition home or self-care (01) ==
LOC: C.EDB 16:05 → C.EDA 21:04
DX: K57.32 Diverticulitis of large intestine without perforation or abscess without bleeding (principal); M48.02 Spinal stenosis, cervical region; K21.9 Gastro-esophageal reflux disease without esophagitis; E78.5 Hyperlipidemia, unspecified; I10 Essential (primary) hypertension; N20.0 Calculus of kidney; F17.200 Nicotine dependence, unspecified, uncomplicated; Z96.659 Presence of unspecified artificial knee joint; Z83.3 Family history of diabetes mellitus; Z82.49 Family history of ischemic heart disease and other diseases of the circulatory system; Z84.1 Family history of disorders of kidney and ureter

== ENCOUNTER 2016-09-10 11:38 | Inpatient (IN) | payer BC, OTHER ==
[~2016-09-10] VITALS: Ht 323.9 cm; Wt 73.1 kg
[~2016-09-10 11:38] MED LIST changes: +AMOX875T PO; -METH4PAK PO; -MOXI400T2 PO
[2016-09-10] MEDS ORDERED: ONDANSETRON INJ 2 MG/ML 2 ML VIAL IV PRN (13:30)
[2016-09-10 13:42] VITALS: BP 150/95; PULSE 61; TEMP 36.8; O2SAT 100; Ht 323.9 cm; Wt 73.1 kg
[2016-09-10] MEDS ORDERED: OPTIRAY 320 IV PRN (13:45)
[2016-09-10] MEDS ORDERED: CIPROFLOXACIN / D5W 400 MG in PREMIXED IN D5W 200 ML IV ONE (14:00)
[2016-09-10] MEDS: METRONIDAZOLE / NSS 500 MG in PREMIXED NSS 100 ML IV SCH ×2 (14:13→21:58)
--- NOTE | 2016-09-10 14:36 | History and Physical ---
History & Physical Date & Time of Service: Sep 10, 2016 at 14:33 Chief Complaint: Diverticulitis Primary Care Physician: Imer Maynard MD History of Present Illness 66y/o M is here for direct admission for failed outpatient treatment of diverciculitis. He was in the ER on 09/04 and was prescribed augmentin for acute diverticulitis. He didn't take the medication due to having had side effects of n/v/d in the past. He kept himself on liquid diet hoping that it would treat the infection but he continued to have RLQ pain which he described as a bruise pain associated with cramping pain whenever he tried to eat solid food. Today he tried solids again and since the cramping pain came back he went back to PCP office to be evaluated. He was evaluated to sent for direct admission. Patient was treated for diverticulitis last month - Jul 2016. Before this he also has h/o acute diverticulitis with perforation in past and had undergone partial bowel resection Past Medical/Surgical History Medical Problems: (1) Cervical stenosis of spine Status: Chronic (2) Gastro-Esophageal Reflux Disease Without Esophagitis Status: Chronic (3) Hyperlipidemia Status: Chronic (4) Hypertension Status: Chronic (5) Shoulder pain Status: Chronic Surgical Problems: (1) History of arthroscopy of shoulder Status: Resolved (2) Total knee replacement status Status: Resolved Partial colon resection - for diverticulitis Family History Diabetes mellitus FH: heart disease Hypertension Kidney disease Kidney stones Social History Smoking Status: Never Smoker Marital Status: single Housing status: lives with family Occupational Status: retired Allergies Coded Allergies: Morphine (Verified Allergy, Severe, THROAT CLOSES, 09/04/16) Home Medications Scheduled Clonidine HCl (Clonidine HCl), 0.1 MG PO BID Lisinopril (Prinivil), 20 MG PO BID Omeprazole (Prilosec), 40 MG PO BID Propranolol Hcl (Propranolol Hcl), 40 MG PO BID Tizanidine (Zanaflex), 4 MG PO HS Tramadol HCl (Tramadol HCl), 50 MG PO Q6 Review of Systems Constitutional: + chills (at night in last week), No fever Eyes: No eye pain, No worsening of vision ENT: + tinnitus (chronic), No hearing loss Respiratory: No cough, No shortness of breath, No sputum Cardiovascular: No chest pain, No orthopnea Abdomen: + pain Musculoskeletal: + problem reported (chronic neck pain radiating to both arms) Genitourinary - Male: No dysuria Neurologic: No memory loss Endocrine: No fatigue Hematologic / Lymphatic: No abnormal bleeding/bruising Integumentary: No rash Physical Exam Vital Signs Date Time Temp Pulse Resp B/P Pulse Ox O2 Delivery O2 Flow Rate FiO2 09/10/16 13:42 36.8 61 18 150/95 100 Room Air General Appearance: no apparent distress Head: normocephalic, atraumatic Eyes: normal inspection, PERRL, EOMI ENT: hearing grossly normal, pharynx normal, + pertinent finding (tongue with yellowish coat on the periphery) Neck: supple, no adenopathy, thyroid normal, no JVD Respiratory/Chest: lungs clear, no respiratory distress Cardiovascular: regular rate, rhythm, no edema, no gallop Abdomen/GI: normal bowel sounds, soft, + pertinent finding (RLQ tenderness +, positive rebound. No gaurding or rigidity) Back: normal inspection, + right CVA tenderness Extremities/Musculoskelatal: normal inspection, no calf tenderness, no pedal edema Neurologic/Psych: no motor/sensory deficits, alert, oriented x 3 Skin: warm/dry Diagnostics Laboratory Results Results Past 24 Hours Test 09/10/16 13:18 Range/Units Microbiology Results 09/10/16 Blood Culture, Received Pending 09/10/16 Blood Culture, Received Pending Impression Assessment and Plan 66 y/o M with h/o recurrent diverticulitis sent here for direct admission from PCP office for RLQ pain and failed outpatient treatment for acute diverticulitis due to inability to take oral antibiotics Acute abdominal pain - RLQ - ? Acute diverticulitis with h/o recurrent diverticulitis - failed outpt rx - check labs - cbc, cmp, coag panel. - CT abd/pelvis. 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 Y/N: Yes Risk Level: Moderate
[2016-09-10] MEDS ORDERED: CEFTRIAXONE SOD INJ 1 GM in DEXTROSE 5% ADD-VANTAGE 50ML 50 ML IV SCH (15:00)
[2016-09-10 15:19] LABS: BASO % 0.3 %; BASO ABS # 0.02 K/uL (0-0.2); COMPLETE YES; EOS % 1.4 %; HEMATOCRIT 47.5 % (42-52); IG% 0.8 %; LYMPH % 21.4 %; LYMPH ABS # 1.36 K/uL (1.2-3.4); MEAN CELL VOLUME 85.9 fL (80-100); MEAN CORPUSCULAR HEMOGLOBIN 29.8 pg (25-34); MEAN CORPUSCULAR HGB CONC 34.7 g/dl (32-36); MEAN PLATELET VOLUME 10.4 fL (7.4-10.4); MONO % 7.2 %; NEUT % 68.9 %; PLATELET COUNT 161 K/uL (130-400); RED BLOOD COUNT 5.53 M/uL (4.7-6.1); WHITE BLOOD COUNT 6.36 K/uL (4.8-10.8)
[2016-09-10] MEDS: HYDROmorphone INJ 1 MG/ML SYR IV PRN ×2 (15:26→19:54)
[2016-09-10] MEDS: D5NSS + 20MEQ KCL 1,000 ML IV SCH ×2 (15:27→23:29)
[2016-09-10 15:39] LABS: MANUAL MICROSCOPIC REQUIRED? YES; URINE APPEARANCE CLEAR (CLEAR); URINE BILIRUBIN NEG (NEG); URINE COLOR YELLOW; URINE NITRITE NEG (NEG); UROBILINOGEN NEG (NEG)
[2016-09-10 15:39] LABS: BUN/CREATININE RATIO 18.5 (10-20); CALCIUM 9.7 mg/dl (8.5-10.1); CREATININE 0.92 mg/dl (0.60-1.40); POTASSIUM 3.8 mmol/L (3.5-5.1); PROTHROMBIN TIME (PATIENT) 10.9 SECONDS (9.0-12.0)
[2016-09-10 15:40] LABS: REVIEW REQ? NO
[2016-09-10 15:42] LABS: ALB/GLOB RATIO 1.1 (0.9-2)
[2016-09-10 15:47] LABS: URINE BACTERIA NEG (NEG); URINE RBC 0-4 /hpf (0-4)
[2016-09-10 15:49] VITALS: BP 129/83; PULSE 55; TEMP 36.9; O2SAT 95
[2016-09-10] MEDS: LORAZEPAM 0.5 MG TAB PO PRN (16:48)
[2016-09-10] MEDS: ENOXAPARIN 40 MG/0.4 ML SYR SQ SCH (16:48)
[2016-09-10] MEDS: LACTOBACILLUS ACIDOPHILUS (FLORANEX) TAB PO SCH ×2 (16:49→19:55)
[2016-09-10] MEDS: NYSTATIN SUSP 500,000 U/5 ML UDC PO SCH ×2 (16:49→19:56)
--- NOTE | 2016-09-10 16:50 | DIAGNOSTIC IMAGING REPORT ---
CT SCAN OF THE ABDOMEN AND PELVIS WITH IV CONTRAST CLINICAL HISTORY: Diverticulitis. COMPARISON STUDY: Abdominal CT dated 09/04/2016 and 08/26/2016. TECHNIQUE: Following the IV administration of 116 cc of Optiray 320, CT scan of the abdomen and pelvis is performed from the lung bases to the proximal femora. Images are reviewed in the axial, sagittal, and coronal planes. IV contrast was administered without complication. Automated dose control exposure was utilized. CT DOSE: 343.14 mGy.cm FINDINGS: Lung bases: The heart is normal in size and without pericardial effusion. The lung bases are clear. Liver: The contrast-enhanced liver is normal in size, contour, and attenuation. There is no intrahepatic biliary ductal dilatation. The hepatic veins and portal veins are patent. Gallbladder: Unremarkable. Spleen: Normal in size and attenuation. Pancreas: Unremarkable. Adrenal glands: Unremarkable. Kidneys: The contrast enhanced kidneys are normal in size and without hydronephrosis. The kidneys enhance symmetrically. Renal cysts measure up to 2.0 cm. Additional subcentimeter cortical hypodensities also likely represent cysts but are too small for definitive characterization. Abdominal vasculature: The abdominal aorta is normal in course and caliber noting mild atherosclerotic calcification. Bowel: The small bowel and colon are normal in course and caliber. There is moderate diverticulosis of the left colon. The previously identified inflammatory process involving the distal descending/proximal sigmoid colon has resolved. No pericolonic inflammation is seen. The appendix is not identified and reported surgically absent. Peritoneum: There is no intraperitoneal free air or abdominal ascites. There is a small fat-containing umbilical hernia. Lymphadenopathy: None. Pelvic viscera: The bladder, prostate, and seminal vesicles are normal as visualized. There are small bilateral fat-containing inguinal hernias. Skeletal structures: No lytic or blastic lesions are seen. There is mild lumbosacral spondylosis. IMPRESSION: 1. There are no acute infectious or inflammatory findings in the abdomen or pelvis. 2. The previously identified inflammatory process involving the distal descending/proximal sigmoid colon seen on prior examinations has resolved. Precautionary nonemergent follow-up colonoscopy is again recommended for further assessment the colon. 3. There is moderate diverticulosis of left colon without CT evidence of acute diverticulitis. 4. Additional findings as above. Electronically signed by: Eugenio Corey M.D. 09/10/2016 4:49 PM Dictated Date/Time: 09/10/2016 4:41 PM
[2016-09-10] MEDS ORDERED: TRAMADOL HCL 50 MG TAB PO PRN (18:00)
[2016-09-10] MEDS: PROPRANOLOL HCL 20 MG TAB PO SCH (19:54)
[2016-09-10] MEDS: CLONIDINE HCL 0.1 MG TAB PO SCH (19:55)
[2016-09-10] MEDS: LISINOPRIL 20 MG TAB PO SCH (19:56)
[2016-09-10] MEDS ORDERED: CIPROFLOXACIN / D5W 400 MG in PREMIXED IN D5W 200 ML IV SCH (21:00)
[2016-09-10 23:38] VITALS: BP 96/58; PULSE 60; TEMP 36.5; O2SAT 98
[2016-09-11] MEDS: HYDROmorphone INJ 1 MG/ML SYR IV PRN ×3 (00:07→08:12)
[2016-09-11] MEDS: METRONIDAZOLE / NSS 500 MG in PREMIXED NSS 100 ML IV SCH (06:17)
[2016-09-11] MEDS: D5NSS + 20MEQ KCL 1,000 ML IV SCH ×3 (06:21→22:18)
[2016-09-11] MEDS: LORAZEPAM 0.5 MG TAB PO PRN ×2 (06:21→21:32)
[2016-09-11 06:58] VITALS: BP 127/81; PULSE 55; TEMP 36.8; O2SAT 99
[2016-09-11] MEDS: LISINOPRIL 20 MG TAB PO SCH ×3 (08:00→19:40)
[2016-09-11] MEDS: PROPRANOLOL HCL 20 MG TAB PO SCH ×2 (08:12→19:39)
[2016-09-11] MEDS: CLONIDINE HCL 0.1 MG TAB PO SCH ×2 (08:12→19:39)
[2016-09-11] MEDS: NYSTATIN SUSP 500,000 U/5 ML UDC PO SCH ×4 (08:13→19:39)
[2016-09-11] MEDS: LACTOBACILLUS ACIDOPHILUS (FLORANEX) TAB PO SCH ×4 (08:13→19:38)
[2016-09-11] MEDS: PANTOprazole INJ 40 MG in SYRINGE 0 ML IV SCH (11:18)
[2016-09-11] MEDS: DICYCLOMINE HCL 20 MG TAB PO SCH ×3 (12:38→19:40)
--- NOTE | 2016-09-11 12:51 | Gastroenterology Progress Note ---
Progress Note Date of Service: Sep 11, 2016 Subjective Pt evaluation today including: conversation w/ patient, physical exam, [facility] lab review, review of studies, review of inpatient medication list Medications Current Inpatient Medications Medications (Trade) Dose Ordered Sig/Maribell Route Start Time Stop Time Status Last Admin Dose Admin Enoxaparin Sodium (Lovenox Inj) 40 mg DAILY@1600 SQ 09/10/16 16:30 10/10/16 16:29 09/10/16 16:48 40 MG Ondansetron HCl (Zofran Inj) 4 mg Q6H PRN IV 09/10/16 13:30 10/10/16 13:29 09/10/16 14:13 4 MG Clonidine HCl (Catapres Tab) 0.1 mg BID PO 09/10/16 20:00 10/10/16 19:59 09/11/16 08:12 0.1 MG Lisinopril (Zestril Tab) 20 mg BID PO 09/10/16 20:00 10/10/16 19:59 09/10/16 19:56 20 MG Propranolol HCl (Inderal Tab) 40 mg BID PO 09/10/16 20:00 10/10/16 19:59 09/11/16 08:12 40 MG Tizanidine HCl 4 mg 4 mg HS PO 09/10/16 21:00 10/10/16 20:59 09/10/16 19:55 4 MG Pantoprazole Sodium/Syringe (Protonix Inj/ Syringe) 10 ml @ 5 mls/min DAILY@11 IV 09/11/16 11:00 10/11/16 10:59 09/11/16 11:18 5 MLS/MIN Nystatin (Mycostatin Susp) 10 ml QID PO 09/10/16 17:00 09/20/16 16:59 09/11/16 11:18 10 ML Lactobacillus Acidophilus (Floranex Tab) 4 tab QID PO 09/10/16 17:00 10/10/16 16:59 09/11/16 11:18 4 TAB Ioversol (Optiray 320) 111 ml UD PRN IV 09/10/16 13:45 09/14/16 13:44 Tramadol HCl 50 mg 50 mg Q6H PRN PO 09/10/16 14:15 10/10/16 14:14 Potassium Chloride/Dextrose/ Sod Cl (D5nss + 20meq KCl) 1,000 ml @ 125 mls/hr Q8H IV 09/10/16 15:00 10/10/16 14:44 09/11/16 06:21 125 MLS/HR Lorazepam (Ativan Tab) 0.5 mg ONE PRN PO 09/10/16 14:45 10/10/16 14:44 09/11/16 06:21 0.5 MG Dicyclomine HCl (Bentyl Tab) 10 mg QID PO 09/11/16 12:00 10/11/16 11:59 09/11/16 12:38 10 MG Objective Vital Signs Date Time Temp Pulse Resp B/P Pulse Ox O2 Delivery O2 Flow Rate FiO2 09/11/16 08:10 Room Air 09/11/16 06:58 36.8 55 20 127/81 99 Room Air 09/10/16 23:38 36.5 60 18 96/58 98 Room Air 09/10/16 23:35 Room Air 09/10/16 16:00 Room Air 09/10/16 15:49 36.9 55 18 129/83 95 Room Air 09/10/16 13:42 36.8 61 18 150/95 100 Room Air Laboratory Results Last 24 Hours Test 09/10/16 15:06 White Blood Count 6.36 K/uL Red Blood Count 5.53 M/uL Hemoglobin 16.5 g/dL Hematocrit 47.5 % Mean Corpuscular Volume 85.9 fL Mean Corpuscular Hemoglobin 29.8 pg Mean Corpuscular Hemoglobin Concent 34.7 g/dl Platelet Count 161 K/uL Mean Platelet Volume 10.4 fL Neutrophils (%) (Auto) 68.9 % Lymphocytes (%) (Auto) 21.4 % Monocytes (%) (Auto) 7.2 % Eosinophils (%) (Auto) 1.4 % Basophils (%) (Auto) 0.3 % Neutrophils # (Auto) 4.38 K/uL Lymphocytes # (Auto) 1.36 K/uL Monocytes # (Auto) 0.46 K/uL Eosinophils # (Auto) 0.09 K/uL Basophils # (Auto) 0.02 K/uL RDW Standard Deviation 43.1 fL RDW Coefficient of Variation 13.8 % Immature Granulocyte % (Auto) 0.8 % Immature Granulocyte # (Auto) 0.05 K/uL Prothrombin Time 10.9 SECONDS Prothromb Time International Ratio 1.0 Activated Partial Thromboplast Time 26.7 SECONDS Partial Thromboplastin Ratio 1.0 Sodium Level 139 mmol/L Potassium Level 3.8 mmol/L Chloride Level 106 mmol/L Carbon Dioxide Level 23 mmol/L Anion Gap 10.0 mmol/L Blood Urea Nitrogen 17 mg/dl Creatinine 0.92 mg/dl Est Creatinine Clear Calc Drug Dose 75.2 ml/min Estimated GFR () 100.1 Estimated GFR (Non- 86.4 BUN/Creatinine Ratio 18.5 Random Glucose 143 mg/dl Calcium Level 9.7 mg/dl Total Bilirubin 0.6 mg/dl Aspartate Amino Transf (AST/SGOT) 14 U/L Alanine Aminotransferase (ALT/SGPT) 27 U/L Alkaline Phosphatase 66 U/L Total Protein 7.0 gm/dl Albumin 3.7 gm/dl Globulin 3.3 gm/dl Albumin/Globulin Ratio 1.1 Assessment and Plan Gi consult dictated job [id number] RLQ pain--chronic since 1997 colon resection for perforated diverticulitis--- location not correlating with bowel thickening on left side of colon on CT beginging 08/15/16, agree with dicyclomine for pain Diarrhea--cdiff negative, check additional cultures thickened left colon on CT --improving hx of black and red stools at outset of problem-- See what stools show but pt would benefit from some type of colon imaging such as BE or colonoscopy depending on his clinical course. Will defer decision to Dr Murrell. Clear liquid diet for now. I am going off service today at [address] Murrell assuming GI care then.
[2016-09-11 15:11] VITALS: BP 145/84; PULSE 56; TEMP 36.6; O2SAT 99
--- NOTE | 2016-09-11 15:11 | Progress Note ---
Subjective Date of Service: Sep 11, 2016. Subjective continuing to have loose stools abdominal pain off and on Problem List Medical Problems: (1) Cervical stenosis of spine Status: Chronic (2) Gastro-Esophageal Reflux Disease Without Esophagitis Status: Chronic (3) Hyperlipidemia Status: Chronic (4) Hypertension Status: Chronic (5) Prescription refill Status: Acute (6) Shoulder pain Status: Chronic (7) URI (upper respiratory infection) Status: Acute Review of Systems Constitutional: No fever Respiratory: No shortness of breath Cardiac: No chest pain Abdomen: + diarrhea, No nausea Male : No dysuria Objective Vital Signs Date Time Temp Pulse Resp B/P Pulse Ox O2 Delivery O2 Flow Rate FiO2 09/11/16 08:10 Room Air 09/11/16 06:58 36.8 55 20 127/81 99 Room Air 09/10/16 23:38 36.5 60 18 96/58 98 Room Air 09/10/16 23:35 Room Air 09/10/16 16:00 Room Air 09/10/16 15:49 36.9 55 18 129/83 95 Room Air Physical Exam General Appearance: no apparent distress Respiratory/Chest: lungs clear, no respiratory distress Cardiovascular: regular rate, rhythm Abdomen: normal bowel sounds, non tender, soft Neurologic/Psychiatric: alert, oriented x 3 Skin: warm/dry, + pertinent finding (anxious) Laboratory Results Last 24 Hours Test 09/10/16 15:06 09/11/16 14:05 White Blood Count 6.36 K/uL Red Blood Count 5.53 M/uL Hemoglobin 16.5 g/dL Hematocrit 47.5 % Mean Corpuscular Volume 85.9 fL Mean Corpuscular Hemoglobin 29.8 pg Mean Corpuscular Hemoglobin Concent 34.7 g/dl Platelet Count 161 K/uL Mean Platelet Volume 10.4 fL Neutrophils (%) (Auto) 68.9 % Lymphocytes (%) (Auto) 21.4 % Monocytes (%) (Auto) 7.2 % Eosinophils (%) (Auto) 1.4 % Basophils (%) (Auto) 0.3 % Neutrophils # (Auto) 4.38 K/uL Lymphocytes # (Auto) 1.36 K/uL Monocytes # (Auto) 0.46 K/uL Eosinophils # (Auto) 0.09 K/uL Basophils # (Auto) 0.02 K/uL RDW Standard Deviation 43.1 fL RDW Coefficient of Variation 13.8 % Immature Granulocyte % (Auto) 0.8 % Immature Granulocyte # (Auto) 0.05 K/uL Prothrombin Time 10.9 SECONDS Prothromb Time International Ratio 1.0 Activated Partial Thromboplast Time 26.7 SECONDS Partial Thromboplastin Ratio 1.0 Sodium Level 139 mmol/L Potassium Level 3.8 mmol/L Chloride Level 106 mmol/L Carbon Dioxide Level 23 mmol/L Anion Gap 10.0 mmol/L Blood Urea Nitrogen 17 mg/dl Creatinine 0.92 mg/dl Est Creatinine Clear Calc Drug Dose 75.2 ml/min Estimated GFR () 100.1 Estimated GFR (Non- 86.4 BUN/Creatinine Ratio 18.5 Random Glucose 143 mg/dl Calcium Level 9.7 mg/dl Total Bilirubin 0.6 mg/dl Aspartate Amino Transf (AST/SGOT) 14 U/L Alanine Aminotransferase (ALT/SGPT) 27 U/L Alkaline Phosphatase 66 U/L Total Protein 7.0 gm/dl Albumin 3.7 gm/dl Globulin 3.3 gm/dl Albumin/Globulin Ratio 1.1 Assessment and Plan 66 y/o M with h/o recurrent diverticulitis sent here for direct admission from PCP office for RLQ pain and failed outpatient treatment for acute diverticulitis due to inability to take oral antibiotics Acute worsening of chronic abdominal pain - RLQ - CT with no diverticulitis. h/ o perforated diverticulitis. - location not correlating with bowel thickening on left side of colon on CT beginging 08/15/16 - d/c IV abx. - advance diet to clears. - bentyl prn - with hx of black and red stools at outset of problem-- consider BE or colonoscopy once stool studies comes back negative. Diarrhea - cdiff negative, check additional cultures Right CVA tenderness - Resolved. - Neg UA and C and S Probable Thrush - Nystatin swish/swallow Chronic pain sec to spinal stenosis - Tramadol, tizanidine HTN - Home meds GERD - PPI Lovenox, Full code
[2016-09-11] MEDS: ENOXAPARIN 40 MG/0.4 ML SYR SQ SCH (16:32)
[2016-09-11] MEDS: TRAMADOL HCL 50 MG TAB PO PRN (16:39)
[2016-09-11 19:42] VITALS: BP 149/81; PULSE 60
[2016-09-11 23:09] VITALS: BP 105/65; PULSE 54; TEMP 36.6; O2SAT 98
[2016-09-12] MEDS: TRAMADOL HCL 50 MG TAB PO PRN ×3 (03:14→17:06)
[2016-09-12] MEDS: D5NSS + 20MEQ KCL 1,000 ML IV SCH ×3 (06:11→21:06)
[2016-09-12 06:14] LABS: BASO % 0.8 %; BASO ABS # 0.03 K/uL (0-0.2); COMPLETE YES; EOS % 2.1 %; HEMATOCRIT 41.5 % (42-52); IG% 0.5 %; LYMPH % 39.9 %; LYMPH ABS # 1.51 K/uL (1.2-3.4); MEAN CELL VOLUME 87.6 fL (80-100); MEAN CORPUSCULAR HGB CONC 34.2 g/dl (32-36); MONO % 11.6 %; NEUT % 45.1 %; PLATELET COUNT 125 K/uL (130-400); RED BLOOD COUNT 4.74 M/uL (4.7-6.1); WHITE BLOOD COUNT 3.78 K/uL (4.8-10.8)
[2016-09-12 06:48] LABS: BUN/CREATININE RATIO 4.4 (10-20); CALCIUM 8.4 mg/dl (8.5-10.1); CREATININE 0.86 mg/dl (0.60-1.40); POTASSIUM 3.9 mmol/L (3.5-5.1)
[2016-09-12 06:51] LABS: ALB/GLOB RATIO 1.1 (0.9-2)
--- NOTE | 2016-09-12 07:22 | GASTROINTESTINAL CONSULTATION ---
DATE OF CONSULTATION: 09/11/2016 REASON FOR CONSULTATION: Right lower quadrant pain. CHIEF COMPLAINT: The patient has right lower quadrant pain and diarrhea. HISTORY OF PRESENT ILLNESS: I reviewed lot of outside records from ER from the [facility] system as well as the [facility] EMR. Basically to summarize, the patient on 08/11/2016 came into the Emergency Room for an upper respiratory infection. No antibiotics were given then. On 08/15/2016, at an office visit, had pneumonia and diagnosed of diverticulitis based on a CT scan. Cipro and Flagyl were prescribed for 10 days. He got diarrhea, nausea, vomiting and Cipro after 2 days was stopped, continued the Flagyl. On 08/26 at 1:30 he was admitted, was on IV Zosyn. By that time, a CT scan showed improvement of the diverticulitis and also had pneumonia that was resolving. He did take moxifloxacin as an outpatient, although did have some nausea with it. On 09/04/2016, he was in the ER with diarrhea and abdominal pain. Augmentin was prescribed, but he did not take it. A CT scan at that time showed mild thickening of the left colon. He went to walk-in clinic 09/10/2016 with 8/10 abdominal pain and diarrhea and was directly admitted. The patient states his abdominal pain is in the right upper quadrant, it is chronic, it is since 1997. It has just been worse the last 3 weeks. Also the diarrhea has been in the last 3 weeks as well. He stated he had black and red blood in stools at the onset of these symptoms in mid July, but now that has resolved. He states overall his pain is somewhat better but when he gets the diarrhea, it is worse. In addition to the crampy right lower quadrant pain, he has a burning pain as well. He has had some chills. He has a dry mouth. He states he had an EGD about a year ago in [place], showed esophagitis. A colonoscopy a year ago in [place], diverticulosis. We do not have any of those records. PAST MEDICAL HISTORY: ALLERGIES: MORPHINE. MEDICATIONS ON ADMISSION: Clonidine, Prinivil, Prilosec, propofol, Zanaflex, and tramadol. PROBLEMS AND SURGERY: Cervical stenosis, GERD, hyperlipidemia, hypertension, shoulder pain, partial colon resection for diverticulitis. FAMILY HISTORY: Diabetes. SOCIAL HISTORY: Tobacco negative. REVIEW OF SYSTEMS: CONSTITUTIONAL: Weak. EYES: Negative. EARS, NOSE, MOUTH, AND THROAT: Chronic tinnitus. CARDIOVASCULAR: Negative. RESPIRATORY: Negative. GENITOURINARY: Negative. MUSCULOSKELETAL: Chronic neck pain. INTEGUMENTARY: Negative. NEUROLOGIC: Negative. PSYCH, ENDOCRINE, HEMATOLOGIC: Negative except as noted above. PHYSICAL EXAMINATION: GENERAL: Male, appears stated age, in no acute distress. VITAL SIGNS: Most recent vital signs in the chart, temp 36.8, pulse 55, respiratory rate 20, BP 127/81, O2 saturation 99% on room air. EYES: Conjunctivae and lids normal. ENT: Oropharynx clear. NECK: Without obvious mass or thyroid enlargement. RESPIRATORY: Normal effort, clear to anterior auscultation. CARDIOVASCULAR: Regular rate and rhythm. EXTREMITIES: Without edema. ABDOMEN: Positive bowel sounds, soft, mild guarding in the right lower quadrant, no rebound, no obvious organomegaly or masses are appreciated. RECTAL: Not done. LYMPH: No obvious neck or groin nodes. MUSCULOSKELETAL: Digits and nails normal. SKIN: Without obvious rash or induration anteriorly. NEUROLOGIC: Cranial nerves intact. Sensation intact. PSYCHIATRIC: Recent and remote memory good. Insight and judgment good. DATA: On admission, CBC normal. PT, PTT was normal. CMP: Glucose 143, otherwise unremarkable. Abdomen and pelvic CT scan: Diverticulosis, left colon inflammation that was in the descending colon and proximal sigmoid colon that resolved, renal cyst, a small fat containing umbilical hernia. IMPRESSION AND PLAN: 1. Right lower quadrant pain, chronic, worse lately. Agree with the dicyclomine for pain. 2. Diarrhea. Clostridium difficile is negative. Check additional cultures. 3. Thickened left colon on CT scan, improving. 4. History of black and red stools at the onset of problem. 5. See what the stool cultures show but the patient would benefit from some type of colon imaging such as barium enema or colonoscopy, depending on his clinical course. We will defer decision to Dr. Murrell. 6. Clear liquid diet for now. MTDD
[2016-09-12 07:32] VITALS: BP 175/91; PULSE 89; TEMP 36.7; O2SAT 100
[2016-09-12] MEDS: LORAZEPAM 0.5 MG TAB PO PRN ×2 (08:30→21:01)
[2016-09-12] MEDS: CLONIDINE HCL 0.1 MG TAB PO SCH ×3 (08:30→17:08)
[2016-09-12] MEDS: DICYCLOMINE HCL 20 MG TAB PO SCH ×4 (08:30→21:01)
[2016-09-12] MEDS: LACTOBACILLUS ACIDOPHILUS (FLORANEX) TAB PO SCH ×4 (08:31→21:01)
[2016-09-12] MEDS: LISINOPRIL 20 MG TAB PO SCH ×2 (08:31→20:00)
[2016-09-12] MEDS: NYSTATIN SUSP 500,000 U/5 ML UDC PO SCH ×4 (08:31→21:01)
[2016-09-12] MEDS: PROPRANOLOL HCL 20 MG TAB PO SCH ×2 (08:31→21:02)
--- NOTE | 2016-09-12 10:20 | Family Medicine Progress Note ---
Progress Note Date of Service Sep 12, 2016. Subjective Pt evaluation today including: conversation w/ patient, physical exam, chart review, lab review, review of studies, review of inpatient medication list Voiding: no voiding problems Loose stools continue. RLQ pain on eating solid food. Currently on liquid diet. Black stool that initially started episode now resolved. He feels this course of events happened with his previous diverticulitits with lingering abdominal pain for a year, negative colonoscopy then a year later he had a bowel perforation in 1997. Constitutional: No chills, No fever Respiratory: No shortness of breath Cardiovascular: No chest pain Abdomen: + diarrhea, + pain (RLQ pain worse on palpation), No GI bleeding, No constipation, No nausea, No vomiting Heme: No abnormal bleeding/bruising Skin: No rash All Other Systems: Reviewed and Negative Medications Current Inpatient Medications Medications (Trade) Dose Ordered Sig/Maribell Route Start Time Stop Time Status Last Admin Dose Admin Enoxaparin Sodium (Lovenox Inj) 40 mg DAILY@1600 SQ 09/10/16 16:30 10/10/16 16:29 09/11/16 16:32 40 MG Ondansetron HCl (Zofran Inj) 4 mg Q6H PRN IV 09/10/16 13:30 10/10/16 13:29 09/10/16 14:13 4 MG Clonidine HCl (Catapres Tab) 0.1 mg BID PO 09/10/16 20:00 10/10/16 19:59 09/11/16 19:39 0.1 MG Lisinopril (Zestril Tab) 20 mg BID PO 09/10/16 20:00 10/10/16 19:59 09/12/16 08:31 20 MG Propranolol HCl (Inderal Tab) 40 mg BID PO 09/10/16 20:00 10/10/16 19:59 09/12/16 08:31 40 MG Tizanidine HCl 4 mg 4 mg HS PO 09/10/16 21:00 10/10/16 20:59 09/11/16 21:32 4 MG Pantoprazole Sodium/Syringe (Protonix Inj/ Syringe) 10 ml @ 5 mls/min DAILY@11 IV 09/11/16 11:00 10/11/16 10:59 09/11/16 11:18 5 MLS/MIN Nystatin (Mycostatin Susp) 10 ml QID PO 09/10/16 17:00 09/20/16 16:59 09/12/16 08:31 10 ML Lactobacillus Acidophilus (Floranex Tab) 4 tab QID PO 09/10/16 17:00 10/10/16 16:59 09/12/16 08:31 4 TAB Ioversol (Optiray 320) 111 ml UD PRN IV 09/10/16 13:45 09/14/16 13:44 Tramadol HCl 50 mg 50 mg Q6H PRN PO 09/10/16 14:15 10/10/16 14:14 09/12/16 03:14 50 MG Potassium Chloride/Dextrose/ Sod Cl (D5nss + 20meq KCl) 1,000 ml @ 125 mls/hr Q8H IV 09/10/16 15:00 10/10/16 14:44 09/12/16 06:11 125 MLS/HR Dicyclomine HCl (Bentyl Tab) 10 mg QID PO 09/11/16 12:00 10/11/16 11:59 09/12/16 08:30 10 MG Lorazepam (Ativan Tab) 0.5 mg BID PRN PO 09/11/16 14:00 10/11/16 13:59 09/12/16 08:30 0.5 MG Objective Vital Signs Date Time Temp Pulse Resp B/P Pulse Ox O2 Delivery O2 Flow Rate FiO2 09/12/16 07:32 36.7 89 16 175/91 100 Room Air 09/11/16 23:59 Room Air 09/11/16 23:09 36.6 54 18 105/65 98 Room Air 09/11/16 19:42 60 149/81 09/11/16 16:00 Room Air 09/11/16 15:11 36.6 56 20 145/84 99 Room Air Physical Exam General Appearance: WD/WN, no apparent distress Eyes: normal inspection (pupils equal), EOMI Neck: supple, no JVD Respiratory/Chest: chest non-tender, lungs clear, normal breath sounds, no respiratory distress, no accessory muscle use Cardiovascular: regular rate, rhythm, no murmur Abdomen: normal bowel sounds, soft, + tenderness (RLQ pain, worse on palpation , no guarding or rebound, non tender elsewhere) Extremities: no pedal edema, no calf tenderness, normal capillary refill, + pertinent finding (pain in right knee on hip rotation (worse internal)) Neurologic/Psychiatric: no motor/sensory deficits, alert, normal mood/affect, oriented x 3 Laboratory Results 09/12/16 05:46 Red Blood Count 4.74, Mean Corpuscular Volume 87.6, Mean Corpuscular Hemoglobin 30.0, Mean Corpuscular Hemoglobin Concent 34.2, Mean Platelet Volume 11.0, Neutrophils (%) (Auto) 45.1, Lymphocytes (%) (Auto) 39.9, Monocytes (%) (Auto) 11.6, Eosinophils (%) (Auto) 2.1, Basophils (%) (Auto) 0.8, Neutrophils # (Auto ) 1.70, Lymphocytes # (Auto) 1.51, Monocytes # (Auto) 0.44, Eosinophils # (Auto ) 0.08, Basophils # (Auto) 0.03 09/12/16 05:46 Test 09/11/16 14:05 09/12/16 05:46 White Blood Count 3.78 K/uL (4.8-10.8) Red Blood Count 4.74 M/uL (4.7-6.1) Hemoglobin 14.2 g/dL (14.0-18.0) Hematocrit 41.5 % (42-52) Mean Corpuscular Volume 87.6 fL (80-100) Mean Corpuscular Hemoglobin 30.0 pg (25-34) Mean Corpuscular Hemoglobin Concent 34.2 g/dl (32-36) Platelet Count 125 K/uL (130-400) Mean Platelet Volume 11.0 fL (7.4-10.4) Neutrophils (%) (Auto) 45.1 % Lymphocytes (%) (Auto) 39.9 % Monocytes (%) (Auto) 11.6 % Eosinophils (%) (Auto) 2.1 % Basophils (%) (Auto) 0.8 % Neutrophils # (Auto) 1.70 K/uL (1.4-6.5) Lymphocytes # (Auto) 1.51 K/uL (1.2-3.4) Monocytes # (Auto) 0.44 K/uL (0.11-0.59) Eosinophils # (Auto) 0.08 K/uL (0-0.5) Basophils # (Auto) 0.03 K/uL (0-0.2) RDW Standard Deviation 44.5 fL (36.4-46.3) RDW Coefficient of Variation 13.7 % (11.5-14.5) Immature Granulocyte % (Auto) 0.5 % Immature Granulocyte # (Auto) 0.02 K/uL (0.00-0.02) Anion Gap 11.0 mmol/L (3-11) Est Creatinine Clear Calc Drug Dose 87.4 ml/min Estimated GFR () 104.7 Estimated GFR (Non- 90.4 BUN/Creatinine Ratio 4.4 (10-20) Calcium Level 8.4 mg/dl (8.5-10.1) Total Bilirubin 0.5 mg/dl (0.2-1) Aspartate Amino Transf (AST/SGOT) 15 U/L (15-37) Alanine Aminotransferase (ALT/SGPT) 19 U/L (12-78) Alkaline Phosphatase 50 U/L (45-117) Total Protein 5.5 gm/dl (6.4-8.2) Albumin 2.9 gm/dl (3.4-5.0) Globulin 2.6 gm/dl (2.5-4.0) Albumin/Globulin Ratio 1.1 (0.9-2) Date/Time Source Procedure Growth Status 09/11/16 14:05 Stool WBC Smear - Final Complete Assessment and Plan 66 y/o M with h/o recurrent diverticulitis sent here for direct admission from PCP office for RLQ pain and failed outpatient treatment for acute diverticulitis due to inability to take oral antibiotics Acute worsening of chronic abdominal pain - RLQ - CT with resolved diverticulitis. h/o perforated diverticulitis. - location not correlating with bowel thickening on left side of colon on CT beginging 08/15/16 - appreciate GI recommendations - d/c IV abx. - advance diet as per GI recommendations - Dicyclomine increase to 20 mg QID RLQ pain with knee pain on hip rotation - will assess for right hip OA with XR in morning Hx of black and red stools at outset of problem - consider BE or colonoscopy once stool studies comes back negative. - Hgb 16.5 ->14.2, will continue to trend (MCV 87.6) Diarrhea - cdiff negative, check additional cultures (pending) Right CVA tenderness - likely back pain related - Resolved. - Neg UA and C and S Probable Thrush - Does not appear to be present on today's examination but given concern on admission will continue nystatin. Possibly also a component of SIFO but will hold systemic antifungals currently pending GI review. Chronic pain sec to cervical spinal stenosis - appears mostly muscular pain and previous muscle trigger point injections have helped. - Tramadol, tizanidine HTN - Continue lisinopril 20 mg BID, clonidine 0.1 mg BID, Propranolol 40 mg BID GERD - Continue pantoprazole 40 mg daily PO VTE Prophylaxis - Lovenox 40 mg daily Code - Full Disposition - Continued med/surg stay due to previous bowel perforation and need to slowly increase diet. Attending Attestation: Pt seen/examined, chart reviewed, care plan d/w PGY2 Dr. Jose Mcgraw. I agree w/ the small components of his documentation with the following exceptions - none. Pt had emesis following a regular lunch tray, but then had dinner tonight w/o incident. He continues with RLQ pain - almost near the inguinal ligament. He had an episode of pain in the same location that radiated around the to the right back that was associated with markedly elevated BP. Denies left-sided abd pain. VSS, afebrile gen - NAD heart - RRR, s1, s2 lungs - CTA b/l abd - soft, modest tenderness inferior most portion of RLQ near the inguinal crease; no masses gu - testes descended b/l, ?trace right-sided hernia, none on left musculo - with passive flexion of right hip this, too, reproduces pain A/P: 1. recent diverticulitis, left colon - resolved clinically & radiographically 2. ongoing RLQ pain - etiology? consider radicular pain from l-spine consider intrinsic right hip pain will look to GI for additional recommendations as well 3. FEN - cont current diet, but if intolerance continues then fall back to full liquids Yared ANDREWS MD Resident Tracking Resident Involvement: Resident Care Provided Care Provided: [facility]
[2016-09-12] MEDS: PANTOprazole INJ 40 MG in SYRINGE 0 ML IV SCH (11:30)
--- NOTE | 2016-09-12 12:49 | PROGRESS NOTE ---
DATE: 09/12/2016 The patient states that his right lower quadrant pain persists, but is getting better slowly. He is hungry and would like to have his diet advanced. His main complaint is that his neck pain is worsening off tramadol and he is hoping to get some tramadol at least when he is discharged. He had a colonoscopy a year ago and just showed diverticulosis. He has had a bowel resection in the past for perforated diverticular disease. 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 At this point, his stool for fecal leukocytes is negative. Stool for bacterial pathogen is negative. Stool for C. diff is negative. Blood cultures are no growth. Urine is no growth. CT is negative and labs are normal. IMPRESSION: The patient has right lower quadrant pain. I think this may be related to taking oral antibiotics. He may also have some adhesions there. The patient is not eager to get a colonoscopy while in the hospital, so I think what we will do is advanced his diet now and plan on doing a colonoscopy as an outpatient in a few weeks.
[2016-09-12 14:45] VITALS: BP 164/91; PULSE 59; TEMP 36.7; O2SAT 99
[2016-09-12 16:54] VITALS: BP 190/91; PULSE 94
[2016-09-12] MEDS: ENOXAPARIN 40 MG/0.4 ML SYR SQ SCH (17:07)
[2016-09-12 18:37] VITALS: BP 172/80; PULSE 55
[2016-09-13] VITALS (9 sets, daily range): BP systolic 109–207; BP diastolic 68–94; PULSE 52–64; TEMP 36.6–36.8; O2SAT 96–99
[2016-09-13] MEDS: TRAMADOL HCL 50 MG TAB PO PRN ×3 (04:44→17:03)
[2016-09-13] MEDS: D5NSS + 20MEQ KCL 1,000 ML IV SCH (05:20)
[2016-09-13 06:18] LABS: HEMATOCRIT 41.9 % (42-52); MEAN CORPUSCULAR HEMOGLOBIN 29.6 pg (25-34); MEAN CORPUSCULAR HGB CONC 34.4 g/dl (32-36); MEAN PLATELET VOLUME 10.4 fL (7.4-10.4); PLATELET COUNT 131 K/uL (130-400); RED BLOOD COUNT 4.87 M/uL (4.7-6.1)
[2016-09-13 06:54] LABS: BUN/CREATININE RATIO 5.5 (10-20); CALCIUM 8.4 mg/dl (8.5-10.1); CREATININE 0.9 mg/dl (0.60-1.40); MAGNESIUM 1.6 mg/dl (1.8-2.4); PHOSPHORUS 2.1 mg/dl (2.5-4.9); POTASSIUM 4.1 mmol/L (3.5-5.1)
[2016-09-13] MEDS ORDERED: POTASSIUM PHOS 3 MMOL/1 ML INFUSION IV STA (07:03)
[2016-09-13] MEDS ORDERED: POTASSIUM PHOSPHATE INJ 9 MMOL in SODIUM CHLORIDE 0.9% 250ML 250 ML IV SCH (07:45)
[2016-09-13] MEDS: LISINOPRIL 20 MG TAB PO SCH ×2 (08:00→12:34)
--- NOTE | 2016-09-13 08:08 | DIAGNOSTIC IMAGING REPORT ---
RIGHT PELVIS/UNILATERAL HIP 2-3VIEWS CLINICAL HISTORY: knee pain on hip rotation ?OA Right COMPARISON STUDY: Abdomen and pelvis CT 09/10/2016. FINDINGS: No fracture or dislocation within the pelvis or hips. Mild bilateral hip osteoarthritis demonstrated by cartilage space narrowing, subchondral sclerosis, and tiny marginal osteophytes. There is os acetabula on the right. IMPRESSION: Mild bilateral hip osteoarthritis. Electronically signed by: Michael Ho M.D. 09/13/2016 8:06 AM Dictated Date/Time: 09/13/2016 7:57 AM
[2016-09-13] MEDS: DICYCLOMINE HCL 20 MG TAB PO SCH ×4 (08:12→22:06)
[2016-09-13] MEDS: MAGNESIUM SULFATE 1GM / D5W 1 GM in PREMIXED IN D5W 100 ML IV SCH ×2 (08:12→11:17)
[2016-09-13] MEDS: CLONIDINE HCL 0.1 MG TAB PO SCH ×2 (08:12→17:28)
[2016-09-13] MEDS: BOOST BREEZE NUTRITION DRINK 1 BOX PO SCH ×2 (08:12→16:55)
[2016-09-13] MEDS: D5W AND 1/2NSS 1,000 ML IV SCH ×2 (08:12→21:10)
[2016-09-13] MEDS: LORAZEPAM 0.5 MG TAB PO PRN ×2 (08:13→22:11)
[2016-09-13] MEDS: NYSTATIN SUSP 500,000 U/5 ML UDC PO SCH ×4 (08:13→22:07)
[2016-09-13] MEDS: PANTOprazole SOD 40 MG TAB PO SCH (08:13)
[2016-09-13] MEDS: PROPRANOLOL HCL 20 MG TAB PO SCH ×2 (08:13→22:07)
[2016-09-13] MEDS: LACTOBACILLUS ACIDOPHILUS (FLORANEX) TAB PO SCH ×4 (08:13→20:00)
--- NOTE | 2016-09-13 11:21 | Family Medicine Progress Note ---
Progress Note Date of Service Sep 13, 2016. Subjective Pt evaluation today including: conversation w/ patient, physical exam, chart review, lab review, review of studies, review of inpatient medication list Voiding: no voiding problems Continuin RLQ pain. Similar to previous day. Tolerating clear liquid diet. All Other Systems: Reviewed and Negative Medications Current Inpatient Medications Medications (Trade) Dose Ordered Sig/Maribell Route Start Time Stop Time Status Last Admin Dose Admin Enoxaparin Sodium (Lovenox Inj) 40 mg DAILY@1600 SQ 09/10/16 16:30 10/10/16 16:29 09/12/16 17:07 40 MG Ondansetron HCl (Zofran Inj) 4 mg Q6H PRN IV 09/10/16 13:30 10/10/16 13:29 09/10/16 14:13 4 MG Clonidine HCl (Catapres Tab) 0.1 mg BID PO 09/10/16 20:00 10/10/16 19:59 09/13/16 08:12 0.1 MG Propranolol HCl (Inderal Tab) 40 mg BID PO 09/10/16 20:00 10/10/16 19:59 09/13/16 08:13 40 MG Tizanidine HCl (Zanaflex Tab) 4 mg HS PO 09/10/16 21:00 10/10/16 20:59 09/12/16 21:02 4 MG Nystatin (Mycostatin Susp) 10 ml QID PO 09/10/16 17:00 09/20/16 16:59 09/13/16 08:13 10 ML Lactobacillus Acidophilus (Floranex Tab) 4 tab QID PO 09/10/16 17:00 10/10/16 16:59 09/13/16 08:13 4 TAB Ioversol (Optiray 320) 111 ml UD PRN IV 09/10/16 13:45 09/14/16 13:44 Lorazepam (Ativan Tab) 0.5 mg BID PRN PO 09/11/16 14:00 10/11/16 13:59 09/13/16 08:13 0.5 MG Pantoprazole Sodium (Protonix Tab) 40 mg QAM PO 09/13/16 08:00 10/13/16 07:59 09/13/16 08:13 40 MG Enteral Nutritional Formula (Boost Breeze Nutritional Drink) 1 box BIDM PO 09/13/16 08:00 10/13/16 07:59 09/13/16 08:12 1 BOX Tramadol HCl (Ultram Tab) Q6H PRN PO 09/12/16 20:15 10/12/16 20:14 09/13/16 04:44 100 MG Dicyclomine HCl 20 mg 20 mg QID PO 09/13/16 08:00 10/13/16 07:59 09/13/16 08:12 20 MG Dextrose/Sodium Chloride (D5W And 1/2nss) 1,000 ml @ 125 mls/hr Q8H IV 09/13/16 07:15 10/13/16 07:14 09/13/16 08:12 125 MLS/HR Lisinopril (Zestril Tab) 40 mg QDL PO 09/13/16 12:00 10/13/16 11:59 Objective Vital Signs Date Time Temp Pulse Resp B/P Pulse Ox O2 Delivery O2 Flow Rate FiO2 09/13/16 07:38 36.7 59 18 191/92 99 09/13/16 00:02 36.8 64 18 158/73 99 Room Air 09/12/16 23:59 Room Air 09/12/16 18:37 55 172/80 09/12/16 16:54 94 190/91 09/12/16 16:00 Room Air 09/12/16 14:45 36.7 59 18 164/91 99 Physical Exam General Appearance: WD/WN, no apparent distress Eyes: normal inspection, PERRL, EOMI ENT: pharynx normal Neck: supple, no JVD Respiratory/Chest: chest non-tender, lungs clear, normal breath sounds, no respiratory distress, no accessory muscle use Cardiovascular: regular rate, rhythm, no murmur Abdomen: normal bowel sounds, soft, + tenderness (RLQ - reproducible when pressing on inguinal ring, no rebound, no guarding) Extremities: no pedal edema, no calf tenderness, normal capillary refill, + pertinent finding Neurologic/Psychiatric: risk control director II-XII nml as tested, no motor/sensory deficits, alert, normal mood/affect, oriented x 3 Skin: normal color, warm/dry, no rash Laboratory Results 09/13/16 05:32 09/13/16 05:32 Test 09/13/16 00:00 09/13/16 05:32 09/13/16 09:35 Stool Occult Blood POSITIVE (NEGATIVE) Red Blood Count 4.87 M/uL (4.7-6.1) Mean Corpuscular Volume 86.0 fL (80-100) Mean Corpuscular Hemoglobin 29.6 pg (25-34) Mean Corpuscular Hemoglobin Concent 34.4 g/dl (32-36) RDW Standard Deviation 42.7 fL (36.4-46.3) RDW Coefficient of Variation 13.6 % (11.5-14.5) Mean Platelet Volume 10.4 fL (7.4-10.4) Anion Gap 8.0 mmol/L (3-11) Est Creatinine Clear Calc Drug Dose 83.5 ml/min Estimated GFR () 102.8 Estimated GFR (Non- 88.7 BUN/Creatinine Ratio 5.5 (10-20) Calcium Level 8.4 mg/dl (8.5-10.1) Phosphorus Level 2.1 mg/dl (2.5-4.9) Magnesium Level 1.6 mg/dl (1.8-2.4) Lactic Acid Level 2.8 mmol/L (0.4-2.0) Assessment and Plan 66 y/o M with h/o recurrent diverticulitis sent here for direct admission from PCP office for RLQ pain and failed outpatient treatment for acute diverticulitis due to inability to take oral antibiotics Acute worsening of chronic abdominal pain - RLQ - CT with resolved diverticulitis. h/o perforated diverticulitis. - location not correlating with bowel thickening on left side of colon on CT beginging 08/15/16. Most likely MSK vs. adhesion pain. - appreciate GI recommendations. O/P colonoscopy in approximately 2 weeks. - d/c IV abx. - advance diet as per GI recommendations - Dicyclomine increase to 20 mg QID - US right inguinal region - no pathology present - lactate ordered and mildly raised, will repeat in morning - discussed with Dr Murrell and US mesenteric arteries ordered. - mild OA on hip XR but examination does not correlate with this RLQ being his hip. Hx of black and red stools at outset of problem - consider BE or colonoscopy once stool studies comes back negative. - Hgb 16.5 ->14.2 ->14.4, will continue to trend Diarrhea - cdiff, salmonella, shigella, Campylobacter negative. Giardia antigen pending Right CVA tenderness - likely back pain related - Resolved. - Neg UA and C and S Probable Thrush - Does not appear to be present on today's examination but given concern on admission will continue nystatin. - Possible SIFO risk factor of mutiple antibiotic regimens so will start 10 day course of fluconazole. Chronic pain sec to cervical spinal stenosis - appears mostly muscular pain and previous muscle trigger point injections have helped. - Tramadol, tizanidine HTN - Continue lisinopril 20 mg BID, clonidine 0.1 mg BID, Propranolol 40 mg BID - Remains elevated but patient refusing lisinopril due to given at same time as clonidine he feels his BP becomes too low. Will switch lisinopril to 40mg PO @ 1200 GERD - Continue pantoprazole 40 mg daily PO VTE Prophylaxis - Lovenox 40 mg daily Code - Full Disposition - Continued med/surg stay due to previous bowel perforation and slowly advancing diet. Need for US mesenteric arteries - Aim home tomorrow Resident Physician Supervision Note: I was present with PGY2 Dr. Jose Mcgraw during the history and exam. I discussed the case with the resident and agree with the findings and plan as documented in the note. Any exceptions or clarifications are listed here: none. Continues with very mild right inguinal discomfort but has been able to eat and tolerate the diet. No vomiting. Ambulating without limitation. VSS no fever gen - nad abd - soft, minimal tenderness over inguinal ligament on right, nontender in all 4 quadrants otherwise, BS+, no HSM A/P: 1. recent left-sided diverticulitis - radiographically and clinically resolved. 2. right-sided inguinal discomfort - no hernia seen clinically or radiographically. Musculoskeletal? 3. agree with mesenteric artery duplex study due to minimally elevated lactic acid 4. labile HTN - adjust meds hopefully home tomorrow Documented By: Jose Gotti MD Resident Tracking Resident Involvement: Resident Care Provided Care Provided: Adult [facility] Medicine
--- NOTE | 2016-09-13 13:06 | DIAGNOSTIC IMAGING REPORT ---
RIGHT INGUINAL ULTRASOUND CLINICAL HISTORY: hx of necrotic lymph node Right COMPARISON STUDY: Abdomen and pelvis CT 09/10/2016. FINDINGS: Real-time sonographic imaging of the right lower quadrant/inguinal region was performed. No soft tissue masses, fluid collections, or necrotic lymph nodes identified. No evidence for abdominal hernia. IMPRESSION: No sonographic abnormality within the right lower quadrant/inguinal region. Electronically signed by: Michael Ho M.D. 09/13/2016 1:05 PM Dictated Date/Time: 09/13/2016 1:03 PM
--- NOTE | 2016-09-13 14:55 | GASTROENTEROLOGY PROGRESS NOTE ---
DATE: 09/13/2016 HISTORY OF PRESENT ILLNESS: The patient just returned from an ultrasound of the lower extremities. The patient feels better with his right-sided lower abdominal pain, although this does persist slightly. The diarrhea also continues and his stools are dark black, but not as intense as they had been and there has been no recent rectal bleeding. The patient had been hospitalized and treatment for pneumonia, at which point he developed a pattern of right lower quadrant abdominal pain, diarrhea and bleeding, which at times was either a bright maroon or quite dark. The patient also gives a history of a sigmoid resection for a perforated diverticulitis many years ago. He has also had an inguinal hernia repair on the right side and at that time, he reports that 3 very black lymph nodes were identified, which were fell to be necrotic and he was informed that they were benign. The patient's CT on September 10 did not reveal any significant inflammatory features or described an inguinal hernia, although there was a small fat-containing periumbilical hernia. LABORATORY DATA: Today show hemoglobin of 14.2 and platelets 131,000. Serum chemistry was normal at 143. His lactic acid level is elevated at 2.8 today. Magnesium is low at 1.6, phosphorus 2.1, and calcium 8.4. His liver tests are all normal on yesterday's draw as well as the . BUN and creatinine are 5 and 0.9. INR on the September 10 was 1.0. ALLERGIES: THE PATIENT IS ALLERGIC TO MORPHINE. MEDICATIONS: His medications in the hospital include lisinopril, pantoprazole, Boost, dicyclomine, dextrose, tramadol, Ativan, Zanaflex, clonidine, Inderal, nystatin, Lovenox, and Zofran. PHYSICAL EXAMINATION: VITAL SIGNS: Today, blood pressure 202/93 and heart rate 58. The patient is 99% on room air. He is afebrile. HEENT: Oral mucosa is moist. HEART: Normal S1 and S2. LUNGS: Clear to auscultation. ABDOMEN: Soft. There is no tenderness. The patient is without rebound or guarding. I do not appreciate evidence of ascites or shifting dullness. EXTREMITIES: Without edema. RECTAL: Deferred at this time. ASSESSMENT AND PLAN: The patient is with development of right lower quadrant abdominal pain, diarrhea and bleeding of varying colors described. Today's stool is more of a dilute dark color. Despite this, his hemoglobin appears stable. There is an elevated lactate level. These symptoms followed a course of antibiotic therapy for pneumonia and at some point, the patient was prescribed both Cipro and Flagyl serially. The source of the patient's pain is unclear. There is no description of an inguinal hernia in this region, although the patient did have an inguinal hernia and repair many years ago. During inguinal hernia repair, black lymph nodes by the patient that were felt to be necrotic, but reprotedly benign. There is no evidence of diverticulitis on the patient's CT scan. Given the elevated lactate level and description of pain, diarrhea, and bleeding, ischemic colitis could be a source of the patient's presentation and at some point, (either as an inpatient if the patient is anticipated to be in the hospital or as an outpatient over the next 1-2 weeks), a colonoscopy would be prudent. Would follow his lactate level to ensure that this is not climbing as well as his abdominal exam. Await the results of the ultrasound imaging from today. If there is any concern for a vascular insufficiency, then either an MRA or CTA may be helpful to exclude this as a source. We will follow with you. If you have any questions, please do not hesitate to contact the service. PHILIP
[2016-09-13] MEDS: ENOXAPARIN 40 MG/0.4 ML SYR SQ SCH (17:04)
[2016-09-13] MEDS ORDERED: NIFEdipine 30 MG CR TAB PO STA (19:03)
--- NOTE | 2016-09-13 22:09 | DIAGNOSTIC IMAGING REPORT ---
DOPPLER ULTRASOUND OF THE MAJOR MESENTERIC VESSELS CLINICAL HISTORY: Elevated lactate, right lower quadrant pain. Possible mesenteric ischemia. COMPARISON STUDY: CT of the abdomen and pelvis September 10, 2016. TECHNIQUE: Grayscale and color and duplex Doppler sonography of the abdominal aorta and the major mesenteric vessels was performed. FINDINGS: The peak systolic velocity within the abdominal aorta was 103 cm/s. The peak systolic velocity within the celiac axis was 226 cm/s and the peak systolic velocity within the superior mesenteric artery was 215 cm/s. The peak systolic velocity within the inferior mesenteric artery was 191 cm/s. IMPRESSION: No evidence of a hemodynamically significant stenosis within the major mesenteric vessels. Electronically signed by: Doe Duncan M.D. 09/13/2016 10:08 PM Dictated Date/Time: 09/13/2016 10:04 PM
[2016-09-14] MEDS: TRAMADOL HCL 50 MG TAB PO PRN ×2 (00:05→06:20)
[2016-09-14] MEDS: PROPRANOLOL HCL 20 MG TAB PO SCH (07:25)
[2016-09-14] MEDS: PANTOprazole SOD 40 MG TAB PO SCH (07:25)
[2016-09-14] MEDS: DICYCLOMINE HCL 20 MG TAB PO SCH ×2 (07:25→12:36)
[2016-09-14] MEDS: LACTOBACILLUS ACIDOPHILUS (FLORANEX) TAB PO SCH ×2 (07:26→12:36)
[2016-09-14] MEDS: CLONIDINE HCL 0.1 MG TAB PO SCH (07:27)
[2016-09-14] MEDS: NYSTATIN SUSP 500,000 U/5 ML UDC PO SCH ×2 (07:29→12:38)
[2016-09-14] MEDS: BOOST BREEZE NUTRITION DRINK 1 BOX PO SCH (07:32)
[2016-09-14 08:00] VITALS: BP 143/82; PULSE 66; TEMP 36.5; O2SAT 97
[2016-09-14] MEDS ORDERED: NIFEdipine 30 MG CR TAB PO SCH (08:00)
[2016-09-14] MEDS ORDERED: FLUCONAZOLE 100 MG TAB PO SCH (08:00)
[2016-09-14 08:24] LABS: BUN/CREATININE RATIO 11.3 (10-20); CALCIUM 9.1 mg/dl (8.5-10.1); CREATININE 0.84 mg/dl (0.60-1.40); MAGNESIUM 1.8 mg/dl (1.8-2.4); POTASSIUM 3.9 mmol/L (3.5-5.1)
[2016-09-14 08:27] LABS: PHOSPHORUS 3.2 mg/dl (2.5-4.9)
[2016-09-14] MEDS ORDERED: TIZA4CAP PO (10:30)
[2016-09-14] MEDS ORDERED: ULT50X PO (10:30)
[2016-09-14] MEDS ORDERED: DFL100 PO (10:30)
[2016-09-14 11:00] VITALS: BP 130/87; PULSE 65; TEMP 36.8; O2SAT 98
--- NOTE | 2016-09-14 12:02 | Discharge Instructions ---
Discharge Instructions Admission Reason for Admission: Diverticulitis (Jose Mcgraw MD) Discharge Discharge Diagnosis / Problem: Non specificied abdominal pain, heme occult positive stool (Jose Mcgraw MD) Discharge Goals Goal(s): Decrease discomfort (Jose Mcgraw MD) Activity Recommendations Activity Limitations: resume your previous activity . (Jose Mcgraw MD) Instructions / Follow-Up Instructions / Follow-Up You were diagnosed with non specific abdominal pain. CT showed resolution of previous diverticulitis. US mesenteric arteries showed no hemodynamically limiting stenosis. US groin showed no hernia or other pathology. Hip XR showed mild bilateral hip osteoarthritis which is unlikely the cause of your pain. Lactate level was normal on discharge. Your pain improved and you are now tolerating a full diet. Most likely your pain is either adhesions or musculoskeletal in origin. There was microscopic amounts of blood in stool. Your hemoglobin remained stable throughout admission and no transfusion was indicated. You were evaluated by gastroenterology who will follow up in approximately 2 weeks for consideration of a colonoscopy. Please follow up with your PCP Dr Maynard within the next week for hospital follow up. (Jose Mcgraw MD) Current Hospital Diet Patient's current hospital diet: Low Fiber Diet (Jose Mcgraw MD) Discharge Diet Recommended Diet: Low Fiber Diet (Jose Mcgraw MD) Pending Studies Studies pending at discharge: yes List of pending studies: Giardia (Jose Mcgraw MD) Medical Emergencies . Who to Call and When: Medical Emergencies: If at any time you feel your situation is an emergency, please call 911 immediately. . (Jose Mcgraw MD) Non-Emergent Contact Non-Emergency issues call your: Primary Care Provider . (Jose Mcgraw MD) . "Provider Documentation" section prepared by Jose Mcgraw. (Jose Mcgraw MD) Attending Attestation: Pt seen & examined with PGY2 Dr. Jose Mcgraw on the day of discharge and I agree with his discharge instructions as outlined. Jose Gotti MD (Jose Gotti MD) VTE Core Measure Inpt VTE Proph given/why not?: Enoxaparin (Lovenox)SQ (Jose Mcgraw MD)
[2016-09-14] MEDS: LISINOPRIL 20 MG TAB PO SCH (12:35)
[2016-09-14 12:56] VITALS: BP 130/87; PULSE 65; TEMP 36.8; O2SAT 98
--- NOTE | 2016-09-14 13:28 | Discharge Summary ---
Discharge Summary Admission Date: Sep 10, 2016 at 12:25 Discharge Date: Sep 14, 2016 Discharge Disposition: Home Principal Diagnosis: Non specified abdominal pain Problems/Secondary Diagnoses: (1) Cervical stenosis of spine Status: Chronic (2) Gastro-Esophageal Reflux Disease Without Esophagitis Status: Chronic (3) Hyperlipidemia Status: Chronic (4) Hypertension Status: Chronic (5) Shoulder pain Status: Chronic Consultations: Gastroenterology (Jose Mcgraw MD) Problems/Secondary Diagnoses: hypomagnesemia - resolved Procedures: CT abd/pelvis - resolution of previous left-sided diverticulitis mesenteric artery duplex study negative for mesenteric artery stenosis right groin u/s negative for hernia or other pathology (Jose Gotti MD) Medication Reconciliation New Medications: Fluconazole (Fluconazole) 100 Mg Tab 100 MG PO QAM for 9 Days, TAB Continued Medications: Clonidine HCl (Clonidine HCl) 0.1 Mg Tab 0.1 MG PO BID for 30 Days, #60 0 Refills NS Lisinopril (Prinivil) 20 Mg Tab 20 MG PO BID, TAB Omeprazole (Prilosec) 20 Mg Capcr 40 MG PO BID, CAP Propranolol Hcl (Propranolol Hcl) 40 Mg Tab 40 MG PO BID Tizanidine (Zanaflex) 4 Mg Cap 4 MG PO HS for 7 Days, CAP (This prescription has been renewed) for neck pain Tramadol HCl (Tramadol HCl) 50 Mg Tab 50 MG PO Q6 for Pain, #14 0 Refills NS (This prescription has been renewed) Discharge Exam No acute issues overnight. Pain much improved. 10 systems review otherwise negative Physical Exam: General Appearance: WD/WN, no apparent distress Respiratory/Chest: chest non-tender, lungs clear, normal breath sounds, no respiratory distress, no accessory muscle use Cardiovascular: regular rate, rhythm, no murmur Abdomen / GI: normal bowel sounds, soft, + tenderness (mild RLQ tenderness without guarding or rebound) Extremities: no pedal edema, normal range of motion Neurologic/Psychiatric: alert, normal mood/affect, oriented x 3 Skin: normal color, warm/dry, no rash (Jose Mcgraw MD) Hospital Course You were diagnosed with non specific abdominal pain. CT showed resolution of previous diverticulitis. US mesenteric arteries showed no hemodynamically limiting stenosis. US groin showed no hernia or other pathology. Hip XR showed mild bilateral hip osteoarthritis which is unlikely the cause of your pain. Lactate level was normal on discharge. Your pain improved and you are now tolerating a full diet. Most likely your pain is either adhesions or musculoskeletal in origin. There was microscopic amounts of blood in stool. Your hemoglobin remained stable throughout admission and no transfusion was indicated. You were evaluated by gastroenterology who will follow up in approximately 2-4 weeks for consideration of a colonoscopy. This includes examination of the patient, discharge planning, medication reconciliation, and communication with other providers. (Jose Mcgraw MD) Resident Physician Supervision Note: I was present with PGY2 Dr. Jose Mcgraw during the discharge history and exam. I discussed the case with the resident and agree with the findings and plan as documented in this discharge summary. Any exceptions or clarifications are listed here: none. 66yo male with history of recent left-sided diverticulitis who presented with ongoing abdominal pain but mainly in the RLQ and the right groin. Extensive work-up failed to yield a specific cause. Much of his pain was provoked by movements of his right hip/leg suggesting perhaps a musculoskeletal etiology. However, he reported that his symptoms were similar to past episodes of resolving diverticulitis. Over his course the pain ultimately improved and he was able to tolerate a regular diet. GI was consulted and the plan for after discharge is to perform a colonoscopy. Extensive stool cultures including giardia, c. diff, bacterial culture, O/P were all negative. His course was complicated by labile HTN, perhaps 2nd to pain and/or anxiety. His BPs improved prior to discharge. discharge exam: gen - NAD heart - RRR, s1, s2 lungs - CTA b/l abd - minimal tenderness over the right groin; BS+, ND, Soft, no HSM; no hernia palpated in the right inguinal canal ext - no edema He will need close follow-up with his PCP and Gastroenterology. Jose Gotti MD (Jose Gotti MD) Discharge Instructions Please refer to the electronic Patient Visit Report (Discharge Instructions) for additional information. (Jose Mcgraw MD) Follow-Up Dr. Maynard's office with Dr. Sylvester on 09/15 at 10:[address] Jean-Baptiste on MondayOctober 03 at 7:40 am (Jose Mcgraw MD) Additional Copies To Rick Stephenson M.D.; Imer Maynard MD
[2016-09-16 12:04] LABS: CRYPTOSPORIDIUM AG TC 37213 NOT DETECTED (NOT DETECTED); ISOSPORA+CYCLOSPORA NOT DETECTED; O&P GIARDIA AG NOT DETECTED (NOT DETECTED); O&P SOURCE OTHER-TOTAL
== END 2016-09-14 13:30 | disposition home or self-care (01) | DRG 392 ==
LOC: C.4E 12:25
PROVIDERS: ADMIT Internal Medicine; ATTEND Internal Medicine
DX: R10.31 Right lower quadrant pain (principal); K92.1 Melena; B37.0 Candidal stomatitis; R19.7 Diarrhea, unspecified; M48.02 Spinal stenosis, cervical region; G89.29 Other chronic pain; I10 Essential (primary) hypertension; K21.9 Gastro-esophageal reflux disease without esophagitis; M25.561 Pain in right knee; Z91.128 Patient's intentional underdosing of medication regimen for other reason; Z87.19 Personal history of other diseases of the digestive system; Z90.49 Acquired absence of other specified parts of digestive tract; Z79.891 Long term (current) use of opiate analgesic; Z79.899 Other long term (current) drug therapy; Z88.5 Allergy status to narcotic agent; Z82.49 Family history of ischemic heart disease and other diseases of the circulatory system; Z83.3 Family history of diabetes mellitus; Z84.1 Family history of disorders of kidney and ureter